=== PATIENT | female | born 1970 | race Caucasian/White ===

== ENCOUNTER 2019-02-07 17:01 | Emergency (ER) | payer MEDICARE, MEDICAID ==
[2019-02-07] MEDS ORDERED: CLONIDINE HCL 0.1 MG TABLET PO ONE (19:29)
[2019-02-07] MEDS ORDERED: ACETAMINOPHEN 325 MG TABLET PO ONE (19:30)
--- NOTE | 2019-02-07 19:32 | ER Document Report ---
ED Medical Screen (RME) - General Chief Complaint: High Blood Pressure Stated Complaint: BLOOD PRESSURE PROBLEM Time Seen by Provider: 02/07/19 19:24 Mode of Arrival: Ambulatory Information source: Patient TRAVEL OUTSIDE OF THE [place] IN LAST 30 DAYS: No - HPI Patient complains to provider of: HTN Notes: 02/07/19 19:31 Patient here with complaints of elevated blood pressure and hypertension. The patient states that she has a history of hypertension. She takes 40 mg of propanolol which has been on for some time. She is also been taking an [id number] herbal supplement to help decrease her blood pressure. She states that her blood pressures been elevated for the last several days. She is been experiencing some dizziness, some blurred vision, some headache, breath. No chest pain. No unilateral numbness, tingling, weakness. Exam No distress, nontoxic-appearing. Lungs clear and equal throughout. Heart sounds normal. Nonfocal neuro exam. Plan CBC, CMP, troponin, EKG, head CT, chest x-ray, clonidine, Tylenol An initial examination was made on the patient as part of the triage process, and it was determined a more comprehensive evaluation was necessary. Initial labs were ordered and patient was transferred to another provider in the ED who assumed care and finished evaluation and plan. - Related Data Allergies/Adverse Reactions: bacitracin [From Neosporin] Allergy (Severe, Verified 02/07/19 17:21) Blisters bacitracin zinc [From Neosporin] Allergy (Severe, Verified 02/07/19 17:21) Blisters gramicidin D [From Neosporin] Allergy (Severe, Verified 02/07/19 17:21) Blisters neomycin sulfate [From Neosporin] Allergy (Severe, Verified 02/07/19 17:21) Blisters nitrous oxide [Nitrous Oxide] Allergy (Severe, Verified 02/07/19 17:21) "Fight or Flight" reaction polymyxin B [From Neosporin] Allergy (Severe, Verified 02/07/19 17:21) Blisters polymyxin B sulfate [From Neosporin] Allergy (Severe, Verified 02/07/19 17:21) Blisters Sulfa (Sulfonamide Antibiotics) Allergy (Severe, Verified 02/07/19 17:21) Jenkins on the inside tizanidine HCl [From Zanaflex] Allergy (Severe, Verified 02/07/19 17:21) Blood in stool Past Medical History - Social History Chew tobacco use (# tins/day): No Frequency of alcohol use: Social Drug Abuse: Marijuana - Past Medical History Cardiac Medical History: Reports: Hx Hypertension Denies: Hx Coronary Artery Disease, Hx Heart Attack Pulmonary Medical History: Reports: Hx Pneumonia - "walking" yrs ago Denies: Hx Asthma, Hx Bronchitis, Hx COPD Neurological Medical History: Denies: Hx Cerebrovascular Accident, Hx Seizures Renal/ Medical History: Denies: Hx Peritoneal Dialysis GI Medical History: Reports: Hx Ulcer - HX OF GASTRIC ULCER. Denies: Hx Hepatitis, Hx Hiatal Hernia Musculoskeltal Medical History: Reports Hx Arthritis - Spurs in back Psychiatric Medical History: Reports: Hx Anxiety Infectious Medical History: Denies: Hx Hepatitis Past Surgical History: Reports: Hx Section, Hx Oral Surgery, Hx Orthopedic Surgery. Denies: Hx Mastectomy, Hx Open Heart Surgery, Hx Pacemaker - Immunizations Hx Diphtheria, Pertussis, Tetanus Vaccination: Yes - 05/20/15 Physical Exam - Vital signs Vitals: Temp Pulse Resp BP Pulse Ox 98.4 F 80 18 183/103 H 98 02/07/19 17:27 02/07/19 17:27 02/07/19 17:27 02/07/19 17:27 02/07/19 17:27 Course - Vital Signs Vital signs: Temp Pulse Resp BP Pulse Ox 98.4 F 80 18 183/103 H 98 02/07/19 17:27 02/07/19 17:27 02/07/19 17:27 02/07/19 17:27 02/07/19 17:27
[2019-02-07 20:44] LABS: ABSOLUTE BASOPHILS # (AUTO) 0.1 10^3/uL (0.0-0.2); ABSOLUTE EOSINOPHILS # (AUTO) 0.2 10^3/uL (0.0-0.6); ABSOLUTE LYMPHOCYTES (AUTO) 5.3 10^3/uL (0.5-4.7); ABSOLUTE MONOCYTES (AUTO) 0.9 10^3/uL (0.1-1.4); ABSOLUTE NEUT (AUTO) 3.8 10^3/uL (1.7-8.2); BASOPHILS % (AUTO) 0.8 % (0-2); EOSINOPHILS % (AUTO) 1.5 % (0-6); HEMATOCRIT 45.5 % (36.0-47.0); HEMOGLOBIN 15.6 g/dL (12.0-15.5); LYMPHOCYTES % (AUTO) 51.7 % (13-45); MEAN CORPUSCULAR HEMOGLOBIN 29.5 pg (27.0-33.4); MEAN CORPUSCULAR HGB CONC 34.3 g/dL (32.0-36.0); MEAN CORPUSCULAR VOLUME 86 fl (80-97); PLATELET COUNT 266 10^3/uL (150-450); RED BLOOD COUNT 5.28 10^6/uL (3.72-5.28); RED CELL DISTRIBUTION WIDTH 13.9 % (11.5-14.0); TOTAL CELLS COUNTED % (AUTO) 100 %; WHITE BLOOD COUNT 10.2 10^3/uL (4.0-10.5)
[2019-02-07 21:11] LABS: ALANINE AMINOTRANSFERASE 26 U/L (9-52); ALKALINE PHOSPHATASE 81 U/L (38-126); ANION GAP 5 (5-19); ASPARTATE AMINO TRANSFERASE 11 U/L (14-36); BILIRUBIN,DIRECT 0.3 mg/dL (0.0-0.4); BILIRUBIN,TOTAL 0.4 mg/dL (0.2-1.3); BLOOD UREA NITROGEN 13 mg/dL (7-20); CALCIUM 9.5 mg/dL (8.4-10.2); CARBON DIOXIDE 27 mmol/L (22-30); CHLORIDE 105 mmol/L (98-107); GLUCOSE 86 mg/dL (75-110); POTASSIUM 4.3 mmol/L (3.6-5.0); SODIUM 136.8 mmol/L (137-145)
--- NOTE | 2019-02-07 21:40 | RADIOLOGY REPORT (SQ) ---
XR CHEST 1 VIEW HISTORY: HTN. COMPARISON: None. FINDINGS: The heart size is normal. No consolidation, pleural effusion, or pneumothorax is seen. There are no acute bony findings. IMPRESSION: No evidence of acute cardiopulmonary disease.
--- NOTE | 2019-02-07 21:42 | RADIOLOGY REPORT (SQ) ---
CT HEAD WITHOUT IV CONTRAST HISTORY: Headache. COMPARISON: None. TECHNIQUE: CT scan of the brain without IV contrast. This exam was performed according to our departmental dose-optimization program, which includes automated exposure control, adjustment of the mA and/or kV according to patient size and/or use of iterative reconstruction technique. FINDINGS: The ventricles, cisterns, and sulci are unremarkable. No focal white matter lesions are seen. No evidence of acute infarction, intracranial hemorrhage, extra-axial fluid collection, or midline shift. No air-fluid levels are seen in the paranasal sinuses to suggest acute sinusitis. No depressed skull fracture. IMPRESSION: No acute intracranial findings.
[2019-02-07] MEDS ORDERED: CLONAZEPAM 1 MG TABLET PO ONE (23:54)
[2019-02-07] MEDS ORDERED: HYDROCHLOROTHIAZIDE 25 MG TABLET PO ONE (23:54)
--- NOTE | 2019-02-08 00:01 | ER Document Report ---
ED General - General Chief Complaint: High Blood Pressure Stated Complaint: BLOOD PRESSURE PROBLEM Time Seen by Provider: 02/07/19 19:24 Primary Care Provider: NATHANIEL PETIT MD [Primary Care Provider] - Follow up as needed Mode of Arrival: Ambulatory Notes: Patient is a pleasant 48-year-old female with a known history of hypertension. She says that she also has a known history of anxiety. She says her blood pressures been running high for several months now. She says is continued to leonila loera. See when her blood pressure gets really high she sometimes gets some headaches and has foggy feeling as well as some numbness in to her bilateral extremities. No chest pain. No difficulty breathing. No nausea vomiting. She used to be on Jahaira but this was discontinued because of a recall medication. She therefore was started on a low-dose of propranolol but is on no other blood pressure medication. She says she does take an herbal supplemental this past to help with blood pressure but her blood pressure continues to run high despite this. She says that she does have anxiety. Says she is always anxious and this probably makes her blood pressure worse. She says she has been on Klonopin for her anxiety which helped significantly however when she moved here a pain management doctor did not want to place her on Klonopin in conjunction with the 7.5 mg hydrocodone she was already on. She says a 7.5 mg, hydrocodone did not make her sleepy and she is been on them for a while. She takes this for chronic back pain. She was placed on Vistaril to help with anxiety but says it does not help. No focal weakness or numbness. No other complaints at this time. TRAVEL OUTSIDE OF THE [place] IN LAST 30 DAYS: No - Related Data Allergies/Adverse Reactions: bacitracin [From Neosporin] Allergy (Severe, Verified 02/07/19 17:21) Blisters bacitracin zinc [From Neosporin] Allergy (Severe, Verified 02/07/19 17:21) Blisters gramicidin D [From Neosporin] Allergy (Severe, Verified 02/07/19 17:21) Blisters neomycin sulfate [From Neosporin] Allergy (Severe, Verified 02/07/19 17:21) Blisters nitrous oxide [Nitrous Oxide] Allergy (Severe, Verified 02/07/19 17:21) "Fight or Flight" reaction polymyxin B [From Neosporin] Allergy (Severe, Verified 02/07/19 17:21) Blisters polymyxin B sulfate [From Neosporin] Allergy (Severe, Verified 02/07/19 17:21) Blisters Sulfa (Sulfonamide Antibiotics) Allergy (Severe, Verified 02/07/19 17:21) Jenkins on the inside tizanidine HCl [From Zanaflex] Allergy (Severe, Verified 02/07/19 17:21) Blood in stool Past Medical History - General Information source: Patient - Social History Smoking Status: Current Every Day Smoker Chew tobacco use (# tins/day): No Frequency of alcohol use: Social Drug Abuse: Marijuana Family History: Reviewed & Not Pertinent Patient has suicidal ideation: No Patient has homicidal ideation: No - Past Medical History Cardiac Medical History: Reports: Hx Hypertension Denies: Hx Coronary Artery Disease, Hx Heart Attack Pulmonary Medical History: Reports: Hx Pneumonia - "walking" yrs ago Denies: Hx Asthma, Hx Bronchitis, Hx COPD Neurological Medical History: Denies: Hx Cerebrovascular Accident, Hx Seizures Renal/ Medical History: Denies: Hx Peritoneal Dialysis GI Medical History: Reports: Hx Ulcer - HX OF GASTRIC ULCER. Denies: Hx Hepatitis, Hx Hiatal Hernia Musculoskeletal Medical History: Reports Hx Arthritis - Spurs in back Psychiatric Medical History: Reports: Hx Anxiety Infectious Medical History: Denies: Hx Hepatitis Past Surgical History: Reports: Hx Section, Hx Oral Surgery, Hx Orthopedic Surgery. Denies: Hx Mastectomy, Hx Open Heart Surgery, Hx Pacemaker - Immunizations Hx Diphtheria, Pertussis, Tetanus Vaccination: Yes - 05/20/15 Review of Systems - Review of Systems Notes: My Normal Review Basic REVIEW OF SYSTEMS: CONSTITUTIONAL : Denies fever, chills, or sweats. Denies recent illness. EENT: Denies eye, ear, throat, or mouth pain or symptoms. Denies nasal or sinus congestion. CARDIOVASCULAR: Denies chest pain. RESPIRATORY: Denies cough, cold, or chest congestion. Denies shortness of breath, difficulty breathing, or wheezing. GASTROINTESTINAL: Denies abdominal pain. Denies nausea, vomiting, or diarrhea. MUSCULOSKELETAL: Denies neck or back pain or joint pain or swelling. SKIN: Denies rash or skin lesions. NEUROLOGICAL: Denies altered mental status or loss of consciousness. Mild headache. Denies weakness or paralysis or loss of use of either side. Denies problems with gait or speech. Denies sensory or motor loss. Psychiatric: Chronic anxiety. ALL OTHER SYSTEMS REVIEWED AND NEGATIVE. Physical Exam - Vital signs Vitals: Temp Pulse Resp BP Pulse Ox 98.4 F 80 18 183/103 H 98 02/07/19 17:27 02/07/19 17:27 02/07/19 17:27 02/07/19 17:27 02/07/19 17:27 - Notes Notes: General Appearance: Well nourished, alert, cooperative, no acute distress, no obvious discomfort. Well-appearing Vitals: reviewed, See vital signs table. Head: no swelling or tenderness to the head Eyes: PERRL, EOMI, Conjuctiva clear Mouth: No decreasd moisture Throat: No tonsillar inflammation, No airway obstruction, No lymphadenopathy Neck: Supple, no neck tenderness Lungs: No wheezing, No rales, No rhonci, No accessory muscle use, good air exchange bilaterally. Heart: Normal rate, Regular rythm, No murmur, no rub Abdomen: Normal BS, soft, No rigidity, No abdominal tenderness, No guarding, no rebound, no abdominal masses, no organomegaly Extremities: strength 5/5 in all extremities, good pulses in all extremities, no swelling or tenderness in the extremities, no edema. Skin: warm, dry, appropriate color, no rash Neuro: speech clear, oriented x 3, normal affect, responds appropriately to questions. Cranial nerves II through XII are intact. Distal sensation intact. Patient moves all extremities without difficulty. Normal gait. Normal Romberg. Course - Re-evaluation Re-evalutation: 02/08/19 05:52 At this time I feel patient safe to be discharged home. I informed her that I do not think her blood pressure really decreased until anxiety is under better control. I will place her on starting lower dose of Klonopin to 0.5 mg twice a day. I will also start hydrochlorothiazide to continue to help bring down her blood pressure. I encouraged her follow-up with your doctor in 1 to 2 weeks for reevaluation to see if she needs further patient adjustment. I encouraged her return to the ER immediately if she has severe headache, vomiting, focal weakness or numbness in her extremities, chest pain, or she has any further concerns. Patient agrees with plan will be discharged home. Dictation of this chart was performed using voice recognition software; therefore, there may be some unintended grammatical errors. - Vital Signs Vital signs: Temp Pulse Resp BP Pulse Ox 98.2 F 80 19 188/98 H 93 02/08/19 00:37 02/07/19 17:27 02/08/19 00:37 02/08/19 00:37 02/08/19 00:37 - Laboratory Result Diagrams: 02/07/19 20:30 02/07/19 20:30 Laboratory results interpreted by me: 02/07/19 02/07/19 20:30 20:30 Hgb 15.6 H Seg Neutrophils % 37.0 L Lymphocytes % 51.7 H Absolute Lymphocytes 5.3 H Sodium 136.8 L AST 11 L Discharge - Discharge Clinical Impression: Anxiety Hypertension Qualifiers: Hypertension type: unspecified Qualified Code(s): I10 - Essential (primary) hypertension Condition: Good Disposition: HOME, SELF-CARE Additional Instructions: HYDROCHLOROTHIAZIDE: Hydrochlorothiazide is a diuretic medication. Diuretics are often called "water pills." The medicine flushes excess salt and water from the body. Diuretics are used for fluid retention (such as heart failure, cirrhosis, or lung disease) and for blood pressure control. Often hydrochlorothiazide is combined with other medicines in the same pill. Most patients prefer to take the medicine in the morning. Hydroc hlorothiazide makes extra urine, which can be a problem if you take the pill at night. Diuretics make you lose potassium. Sometimes a good diet with plenty of fruit is enough to replace it. Sometimes a potassium supplement is necessary. Or, hydrochlorothiazide may be combined with medicines that prevent potassium loss. We usually recommend a blood potassium test in a few weeks. Contact your doctor if you develop extreme fatigue, muscle weakness, lethargy, confusion, or palpitations. FOLLOW-UP CARE: If you have been referred to a physician for follow-up care, call the [facility] office for an appointment as you were instructed or within the next two days. If you experience worsening or a significant change in your symptoms, notify the physician immediately or return to the Emergency Department at any time for re-evaluation. I have written a prescription for hydrochlorothiazide. This is a medication that helps treat blood pressure. Side effects for this medication potentially is having a decreased sodium. Symptoms of this will be that you feel confused or unwell. Please return to the ER immediately if you feel confused or very fatigued. I will also place you back on Klonopin. If the Klonopin is making you very sleepy then you should hold off on taking it and follow-up with your primary care doctor. Please check your blood pressure 1-2 times a day over the next 2 weeks. Please follow-up with your doctor in 1 to 2 weeks for reevaluation to determine whether or not he needs to adjust your medications. Please return to the ER immediately if you have chest pain, difficulty breathing, severe headache, vomiting, fevers, or feel unwell. Please be aware that the Klonopin may make you little bit drowsy and therefore not drive if you are feeling drowsy or confused in any way. Prescriptions: Clonazepam [Klonopin] 0.5 mg PO BID #28 tablet RX: Hydrochlorothiazide [Hydrodiuril 25 mg Tablet] 25 mg PO QAM #14 tablet Referrals: NATHANIEL PETIT MD [Primary Care Provider] - Follow up as needed
[2019-02-08 00:41] VITALS: BP 188/98
--- NOTE | 2019-02-08 08:49 | EKG REPORT ---
SEVERITY:- ABNORMAL ECG - SINUS RHYTHM LEFT ATRIAL ABNORMALITY NONSPECIFIC INFERIOR ST CHANGES : Confirmed by: Elvis Robins MD 08-Feb-2019 08:47:51
== END 2019-02-08 00:41 | disposition home or self-care (01) ==
LOC: ER 17:01
DX: F41.9 Anxiety disorder, unspecified (principal); I10 Essential (primary) hypertension; R51 Headache; F17.200 Nicotine dependence, unspecified, uncomplicated; Z88.2 Allergy status to sulfonamides; Z88.1 Allergy status to other antibiotic agents
CPT/HCPCS: 93005; 99284; 36415; 85025; 80053; 84484; 71045; 70450; 93010; A9270 ×3

== ENCOUNTER 2019-06-08 10:05 | Observation (INO) | payer MEDICARE, MEDICAID ==
[2019-06-06 10:19] LABS: HEMATOCRIT 40.8 % (36.0-47.0); HEMOGLOBIN 13.9 g/dL (12.0-15.5); MEAN CORPUSCULAR HGB CONC 34.1 g/dL (32.0-36.0); MEAN CORPUSCULAR VOLUME 85 fl (80-97); PLATELET COUNT 325 10^3/uL (150-450); RED CELL DISTRIBUTION WIDTH 14.6 % (11.5-14.0); WHITE BLOOD COUNT 9.9 10^3/uL (4.0-10.5)
[2019-06-06 10:31] LABS: APPEARANCE,URINE CLEAR; BILIRUBIN,URINE NEGATIVE (NEGATIVE); COLOR,URINE YELLOW; GLUCOSE, URINE NEGATIVE (NEGATIVE); KETONES,URINE NEGATIVE (NEGATIVE); LEUKOCYTE ESTERASE,URINE NEGATIVE (NEGATIVE); NITRITE,URINE NEGATIVE (NEGATIVE); PROTEIN,URINE NEGATIVE (NEGATIVE); URINE SPECIFIC GRAVITY 1.011; UROBILINOGEN,URINE NEGATIVE mg/dL (<2.0)
--- NOTE | 2019-06-06 17:33 | EKG REPORT ---
SEVERITY:- NORMAL ECG - SINUS RHYTHM : Confirmed by: Josselin Elizabeth MD 06-Jun-2019 17:33:18
[~2019-06-08 10:05] MED LIST: LACTATED RINGERS 1000 ML IV PRN; LIDOCAINE 0.5% INJ-PF (5 MG/ML) 50 ML SDV SUBCUT PRN
[2019-06-08] MEDS ORDERED: MIDAZOLAM 2 MG/2 ML INJ ONE (11:51)
[2019-06-08] MEDS ORDERED: FENTANYL CITRATE INJ/PF 100 MCG/2 ML AMPUL ONE (11:51)
[2019-06-08] MEDS ORDERED: KETAMINE HCL INJ 500 MG/10 ML VIAL ONE (11:51)
[2019-06-08] MEDS ORDERED: PROPOFOL INJ 200 MG/20 ML VIAL IV ONE (11:52)
[2019-06-08] MEDS ORDERED: LIDOCAINE 1% INJ-PF (10 MG/ML) 30 ML SDV ONE (11:57)
[2019-06-08] MEDS ORDERED: MORPHINE SULFATE 10 MG/ML INJ IV PRN (12:46)
[2019-06-08] MEDS ORDERED: PROMETHAZINE HCL INJ 25 MG/1 ML VIAL IV PRN ×3 (12:46→13:30)
[2019-06-08] MEDS ORDERED: MEPERIDINE HCL/PF INJ 25 MG/1 ML DISP.SYRIN IV PRN (12:46)
[2019-06-08] MEDS ORDERED: DIPHENHYDRAMINE HCL 50 MG/ML VIAL IV PRN (12:46)
[2019-06-08] MEDS ORDERED: FENTANYL CITRATE INJ/PF 100 MCG/2 ML AMPUL IV PRN ×3 (12:46)
--- NOTE | 2019-06-08 13:05 | Operative Report ---
Operative Report DATE OF SURGERY: 06/08/19 PREOPERATIVE DIAGNOSIS: 1. Menorrhagia. 2. Negative endometrial biopsy POSTOPERATIVE DIAGNOSIS: Same plus possible right vaginal lesion OPERATION: 1. Dilatation and curettage. 2. Endometrial ablation via NovaSure. 3. Right posterior cul-de-sac biopsy SURGEON: YAEL WYATT ANESTHESIA: Moderate Sedation TISSUE REMOVED OR ALTERED: 1. Endometrial curettings. 2. Right vaginal biopsy COMPLICATIONS: None ESTIMATED BLOOD LOSS: 25 mL INTRAOPERATIVE FINDINGS: Uterus sounded 9 cm; cavity with 3.5 cm; power= 89 W; ablation cycle lasted 1 minute and 50 seconds; right posterior cul-de-sac adhesion versus lesion PROCEDURE: The patient was taken to the operating room where light sedation was pediatric dietician without difficulty. The patient was then prepared and draped in the normal sterile fashion in dorsal lithotomy position. The patient's bladder was straight catheterized of approximately 200 mL of clear urine. Next, a bivalve speculum was placed in the patient's vagina and the anterior lip of the cervix was grasped with a single-tooth tenaculum. It was noted that in the right posterior cul-de-sac, beneath the cervix, there was a bulge, which was adhesed to the vagina. I biopsied the area. Next, the uterus was sounded, which was 9 cm. The endocervical canal was 4.5 cm. The patient's cervix was serially dilated in order to accommodate the NovaSure applicator. A sharp curettage was then performed and the curettings was passed off to the OR tech. Next, the NovaSure applicator was introduced into the endometrial cavity with a setting of 4.5. The cavity width was then assessed, which measured 3.6 cm. The test cycle was then run, which was successful. The machine was then activated for the burn cycle which lasted 1 minute and 50 seconds, using a power of 89 W. The NovaSure applicator was then removed from the patient's uterine cavity. The single-tooth tenaculum was then removed, in which there was some bleeding on the right. Monsel's was placed for hemostasis. All instruments were then removed from the patient's vagina. The patient tolerated the procedures well. Sponge, lap and instrument counts were correct x2. The patient was taken to the recovery room in stable condition.
[2019-06-08] MEDS: MEPERIDINE HCL/PF INJ 25 MG/1 ML DISP.SYRIN ONE ×2 (13:06→13:11)
[2019-06-08] MEDS ORDERED: ACETAMINOPHEN 1,000 MG/100 ML RTUPB IV ONE (13:17)
[2019-06-08] MEDS: FENTANYL CITRATE INJ/PF 100 MCG/2 ML AMPUL ONE ×2 (13:18→13:28)
[2019-06-08] MEDS: LABETALOL HCL INJ 20 MG/4 ML DISP.SYRIN IV ONE ×2 (13:23→14:16)
[2019-06-08] MEDS ORDERED: OXYCODONE-ACETAMINOPHEN 5-325 MG TABLET PO PRN (13:30)
[2019-06-08] MEDS ORDERED: ONDANSETRON HCL INJ/PF 4 MG/2 ML SDV IV PRN ×2 (13:30→16:54)
[2019-06-08] MEDS ORDERED: OXYCODONE-ACETAMINOPHEN 5-325 MG TABLET ONE (14:40)
[2019-06-08] MEDS ORDERED: ONDANSETRON HCL INJ/PF 4 MG/2 ML SDV ONE (14:47)
[2019-06-08] MEDS ORDERED: GLYCOPYRROLATE 1 MG/5 ML VIAL ONE (14:47)
[2019-06-08] MEDS ORDERED: KETOROLAC TROMETHAMINE 60 MG/2 ML SDV ONE (14:47)
[2019-06-08] MEDS ORDERED: PROMETHAZINE HCL INJ 25 MG/1 ML VIAL ONE ×2 (14:59→15:28)
[2019-06-08] MEDS ORDERED: HYDRALAZINE HCL INJ/PF 20 MG/1 ML SDV ONE (16:10)
[2019-06-08] MEDS: HYDRALAZINE HCL INJ/PF 20 MG/1 ML SDV IV ONE (16:20)
[2019-06-08] MEDS ORDERED: ONDANSETRON 4 MG TAB.RAPDIS PO PRN (16:54)
[2019-06-08] MEDS ORDERED: HYDRALAZINE HCL INJ/PF 20 MG/1 ML SDV IV PRN (17:07)
[2019-06-08] MEDS: CLONIDINE HCL 0.2 MG TABLET PO ONE (17:11)
--- NOTE | 2019-06-08 17:49 | Progress Note Acknowledgement ---
Progress Note Acknowledgement Progess Note Acknowledgement: I, the undersigned member of the medical staff with appropriate privileges and with supervisory authority over [Bright Trejo], a dependent practice allied health professional, acknowledge that I have reviewed the progress notes entered on this patient, and in my professional judgment believe that the assessment made and/or any care evidenced was appropriate
--- NOTE | 2019-06-08 17:54 | PDOC H&P ---
History of Present Illness Admission Date/PCP: EDER TRUONG Patient complains of: Hypertension History of Present Illness: SALLY TURK is a 48 year old female who underwent a endometrial ablation today for menorrhagia. After the procedure patient was found to have hypertension 210/110 that was nonresponsive to hydralazine and labetalol. I was asked see patient in consultation to get her blood pressure better under control before discharge home. She had several doses of hydralazine and labetalol before I arrived she stated no true aggravating factors. Past Medical History Cardiac Medical History: Reports: Coronary Artery Disease - HIGH CHOL, Hypertension Denies: Myocardial Infarction Pulmonary Medical History: Reports: Pneumonia - "walking" yrs ago Denies: Asthma, Bronchitis, Chronic Obstructive Pulmonary Disease (COPD) Neurological Medical History: Denies: Seizures GI Medical History: Denies: Hepatitis, Hiatal Hernia Musculoskeltal Medical History: Reports: Arthritis - Spurs in back Hematology: Reports: Anemia - with Denies: Sickle Cell Disease Past Surgical History Past Surgical History: Reports: Section, Orthopedic Surgery Denies: Amputation, Mastectomy, Pacemaker Social History Information Source: Patient Lives with: Family Smoking Status: Current Every Day Smoker Cigarettes Packs Per Day: 0.5 Frequency of Alcohol Use: None Hx Recreational Drug Use: Yes Drugs: Marijuana Hx Prescription Drug Abuse: No - Advance Directive Resuscitation Status: Full Code Family History Family History: DM, Hyperlipidemia, Hypertension Parental Family History Reviewed: Yes Children Family History Reviewed: Yes Sibling(s) Family History Reviewed.: Yes Medication/Allergy Home Medications: Hydrocodone/Acetaminophen [Hydrocodone-Acetamin 7.5-325] 1 each PO Q6 PRN 10/13/15 Lidocaine HCl [Xylocaine] 35 gm TP PRN PRN 10/13/15 Hydrochlorothiazide [Hydrodiuril 25 mg Tablet] 25 mg PO QAM #14 tablet 02/07/19 Clomiphene Citrate [Serophene 50 mg Tablet] 50 mg PO DAILY 06/08/19 Escitalopram Oxalate [Lexapro] 20 mg PO DAILY 06/08/19 Hydroxyzine HCl [Atarax 50 mg Tablet] 50 mg PO Q6 PRN 06/08/19 Loratadine [Claritin] 10 mg PO PRN PRN 06/08/19 Losartan/Hydrochlorothiazide [Losartan-Hctz 100-25 mg Tab] 1 each PO DAILY 06/08/19 Propranolol HCl [Inderal 40 Mg Tablet] 40 mg PO BID 06/08/19 Allergies/Adverse Reactions: bacitracin [From Neosporin] Allergy (Severe, Verified 06/06/19 10:59) Blisters neomycin sulfate [From Neosporin] Allergy (Severe, Verified 06/06/19 10:59) Blisters nitrous oxide [Nitrous Oxide] Allergy (Severe, Verified 06/06/19 10:59) "Fight or Flight" reaction polymyxin B [From Neosporin] Allergy (Severe, Verified 06/06/19 10:59) Blisters Sulfa (Sulfonamide Antibiotics) Allergy (Severe, Verified 06/06/19 10:59) Jenkins on the inside tizanidine HCl [From Zanaflex] Allergy (Severe, Verified 06/06/19 10:59) Blood in stool Review of Systems Constitutional: ABSENT: chills, fever(s), headache(s), weight gain, weight loss Eyes: ABSENT: visual disturbances Ears: ABSENT: hearing changes Cardiovascular: ABSENT: chest pain, dyspnea on exertion, edema, orthropnea, palpitations Respiratory: ABSENT: cough, hemoptysis Gastrointestinal: ABSENT: abdominal pain, constipation, diarrhea, hematemesis, hematochezia, nausea, vomiting Genitourinary: ABSENT: dysuria, hematuria Musculoskeletal: ABSENT: joint swelling Integumentary: ABSENT: rash, wounds Neurological: ABSENT: abnormal gait, abnormal speech, confusion, dizziness, focal weakness, syncope Psychiatric: ABSENT: anxiety, depression, homidical ideation, suicidal ideation Endocrine: ABSENT: cold intolerance, heat intolerance, polydipsia, polyuria Hematologic/Lymphatic: ABSENT: easy bleeding, easy bruising Physical Exam Vital Signs: Temp Pulse Resp BP Pulse Ox 97.6 F 88 18 171/89 H 97 06/08/19 17:30 06/08/19 17:30 06/08/19 17:30 06/08/19 17:30 06/08/19 17:30 Intake & Output 06/07/19 06/08/19 06/09/19 06:59 06:59 06:59 Intake Total 900 Output Total 404 Balance 496 Weight 108.86 kg 108.86 kg General appearance: PRESENT: no acute distress, well-developed, well-nourished Head exam: PRESENT: atraumatic, normocephalic Eye exam: PRESENT: conjunctiva pink, EOMI, PERRLA. ABSENT: scleral icterus Ear exam: PRESENT: normal external ear exam Mouth exam: PRESENT: moist, tongue midline Neck exam: ABSENT: carotid bruit, JVD, lymphadenopathy, thyromegaly Respiratory exam: PRESENT: clear to auscultation sweta. ABSENT: rales, rhonchi, wheezes Cardiovascular exam: PRESENT: RRR. ABSENT: diastolic murmur, rubs, systolic murmur Pulses: PRESENT: normal dorsalis pedis pul Vascular exam: PRESENT: normal capillary refill GI/Abdominal exam: PRESENT: normal bowel sounds, soft. ABSENT: distended, guarding, mass, organolmegaly, rebound, tenderness Rectal exam: PRESENT: deferred Extremities exam: PRESENT: full ROM. ABSENT: calf tenderness, clubbing, pedal edema Neurological exam: PRESENT: alert, awake, oriented to person, oriented to place, oriented to time, oriented to situation, CN II-XII grossly intact. ABSENT: motor sensory deficit Psychiatric exam: PRESENT: appropriate affect, normal mood. ABSENT: homicidal ideation, suicidal ideation Skin exam: PRESENT: dry, intact, warm. ABSENT: cyanosis, rash Results Laboratory Results: 06/06/19 09:40 06/08/19 11:23 06/08/19 06/08/19 11:23 11:23 Potassium 4.1 Serum HCG, Qual NEGATIVE Assessment and Plan - Diagnosis (1) Hypertensive urgency Is this a current diagnosis for this admission?: Yes Plan: June 08, 2019-upon my arrival to the PACU patient's blood pressure 173/90. I gave her 0.2 mg of clonidine p.o. I will continue hydralazine 10 mg IV every 4 hours as needed for systolic blood pressure above 160. Will reassess in the a.m. (2) Menorrhagia Is this a current diagnosis for this admission?: Yes Plan: June 08, 2019-patient underwent endometrial ablation today continue to follow. (3) S/P endometrial ablation Is this a current diagnosis for this admission?: Yes Plan: June 08, 2019-patient underwent endometrial ablation today we will monitor for signs of bleeding or any other comp occasion. (4) Tobacco abuse Is this a current diagnosis for this admission?: Yes Plan: June 08, 2019-continue to encourage smoking cessation. - Time Time Spent with patient: 35 or more minutes
[2019-06-08] MEDS: PROPRANOLOL HCL 40 MG TABLET PO SCH (21:07)
[2019-06-08] MEDS: OXYCODONE-ACETAMINOPHEN 5-325 MG TABLET PO PRN (21:08)
[2019-06-09] MEDS: CLONIDINE HCL 0.2 MG TABLET PO ONE (00:14)
[2019-06-09] MEDS: HYDRALAZINE HCL INJ/PF 20 MG/1 ML SDV IV ONE (00:14)
--- NOTE | 2019-06-09 05:33 | PDOC PROGRESS REPORT ---
Subjective Progress Note for:: 06/09/19 Subjective:: Uncontrolled hypertension Reason For Visit: N92.0 EXCESSIVE AND FREQUENT MENSTRUATION , Z79.01 Physical Exam - Physical Exam Vital Signs: Temp Pulse Resp BP Pulse Ox 98.8 F 71 20 115/65 95 06/09/19 04:12 06/09/19 04:12 06/09/19 04:12 06/09/19 04:12 06/09/19 04:12 Intake & Output 06/07/19 06/08/19 06/09/19 06:59 06:59 06:59 Intake Total 2170 Output Total 404 Balance 1766 Weight 108.86 kg 110 kg General appearance: PRESENT: no acute distress Respiratory exam: PRESENT: clear to auscultation sweta Cardiovascular exam: PRESENT: RRR GI/Abdominal exam: PRESENT: normal bowel sounds, soft Extremities exam: ABSENT: calf tenderness, clubbing, full ROM, joint swelling, pedal edema, tenderness, +1 edema, +2 edema, other Result Laboratory Results: 06/06/19 09:40 06/08/19 11:23 06/08/19 06/08/19 11:23 11:23 Potassium 4.1 Serum HCG, Qual NEGATIVE Assessment & Plan - Diagnosis (1) Hypertensive urgency Is this a current diagnosis for this admission?: Yes (2) Menorrhagia Is this a current diagnosis for this admission?: Yes (3) S/P endometrial ablation Is this a current diagnosis for this admission?: Yes (4) Tobacco abuse Is this a current diagnosis for this admission?: Yes - Time Time Spent with patient: Less than 15 minutes - Plan Summary Plan Summary: Pt will be OBV overnight secondary to uncontrolled hypertension after her endom etrial ablation. She is not painful. I was called by Dr. Shankar, who stated that he had given her Labetalol and Hydralazine and her BP was still 200/100. I consulted the hospitalist to manage her BP.
[2019-06-09 07:40] LABS: ANION GAP 8 (5-19); BLOOD UREA NITROGEN 11 mg/dL (7-20); CALCIUM 8.8 mg/dL (8.4-10.2); CARBON DIOXIDE 28 mmol/L (22-30); CHLORIDE 101 mmol/L (98-107); GLUCOSE 92 mg/dL (75-110); POTASSIUM 3.7 mmol/L (3.6-5.0)
[2019-06-09] MEDS ORDERED: HYDROCHLOROTHIAZIDE 25 MG TABLET PO SCH (08:00)
--- NOTE | 2019-06-09 08:06 | PDOC DISCHARGE SUMMARY ---
General - Admit/Disc Date/PCP Admission Date/Primary Care Provider: EDER TRUONG Discharge Date: 06/09/19 - Discharge Diagnosis (1) Hypertensive urgency Is this a current diagnosis for this admission?: Yes (2) Menorrhagia Is this a current diagnosis for this admission?: Yes (3) S/P endometrial ablation Is this a current diagnosis for this admission?: Yes (4) Tobacco abuse Is this a current diagnosis for this admission?: Yes - Additional Information Resuscitation Status: Full Code Discharge Diet: As Tolerated Discharge Activity: Activity As Tolerated Home Medications: Hydrochlorothiazide [Hydrodiuril 25 mg Tablet] 25 mg PO QAM #14 tablet 02/07/19 Escitalopram Oxalate [Lexapro] 20 mg PO DAILY 06/08/19 Hydrocodone/Acetaminophen [[place] 10-325 mg Tablet] 1 tab PO Q6HP PRN 06/08/19 Hydroxyzine HCl [Atarax 50 mg Tablet] 50 mg PO Q6HP PRN 06/08/19 Loratadine [Claritin] 10 mg PO DAILYP PRN 06/08/19 Losartan Potassium [Cozaar 100 mg Tablet] 100 mg PO DAILY 06/08/19 Norethindrone Acetate [Aygestin 5 mg Tablet] 10 mg PO DAILY 06/08/19 Orphenadrine Citrate 100 mg PO BIDP PRN 06/08/19 Propranolol HCl [Inderal 40 mg Tablet] 40 mg PO Q12 06/08/19 Quetiapine Fumarate [Seroquel 100 mg Tablet] 100 mg PO DAILY 06/08/19 History of Present Illness Patient complains of: None this a.m. History of Present Illness: SALLY TURK is a 48 year old female who underwent a endometrial ablation today for menorrhagia. After the procedure patient was found to have hypertension 210/110 that was nonresponsive to hydralazine and labetalol. I was asked see patient in consultation to get her blood pressure better under control before discharge home. She had several doses of hydralazine and labetalol before I arrived she stated no true aggravating factors. Hospital Course Hospital Course: Patient was admitted after endometrial ablation with hypertensive urgency. Once I saw patient in the PACU her blood pressure was already trending down. I gave patient 0.2 of clonidine and this morning her blood pressure is 115 systolic. This is more along the norm for this patient. Patient will be discharged home at this time she will follow-up with her primary care practitioner within [address] osman as per Dr. osman's instructions. Patient is in agreement with plan of care Physical Exam Vital Signs: Temp Pulse Resp BP Pulse Ox 98.8 F 71 20 115/65 95 06/09/19 04:12 06/09/19 04:12 06/09/19 04:12 06/09/19 04:12 06/09/19 04:12 Intake & Output 06/08/19 06/09/19 06/10/19 06:59 06:59 06:59 Intake Total 2370 Output Total 404 Balance 1966 Weight 110 kg General appearance: PRESENT: no acute distress, well-developed, well-nourished Head exam: PRESENT: atraumatic, normocephalic Eye exam: PRESENT: conjunctiva pink, EOMI, PERRLA. ABSENT: scleral icterus Ear exam: PRESENT: normal external ear exam Mouth exam: PRESENT: moist, tongue midline Neck exam: ABSENT: carotid bruit, JVD, lymphadenopathy, thyromegaly Respiratory exam: PRESENT: clear to auscultation sweta. ABSENT: rales, rhonchi, wheezes Cardiovascular exam: PRESENT: RRR. ABSENT: diastolic murmur, rubs, systolic murmur Pulses: PRESENT: normal dorsalis pedis pul Vascular exam: PRESENT: normal capillary refill GI/Abdominal exam: PRESENT: normal bowel sounds, soft. ABSENT: distended, guarding, mass, organolmegaly, rebound, tenderness Rectal exam: PRESENT: deferred Extremities exam: PRESENT: full ROM. ABSENT: calf tenderness, clubbing, pedal edema Neurological exam: PRESENT: alert, awake, oriented to person, oriented to place, oriented to time, oriented to situation, CN II-XII grossly intact. ABSENT: motor sensory deficit Psychiatric exam: PRESENT: appropriate affect, normal mood. ABSENT: homicidal ideation, suicidal ideation Skin exam: PRESENT: dry, intact, warm. ABSENT: cyanosis, rash Results Laboratory Results: 06/06/19 09:40 06/09/19 06:06 06/08/19 06/08/19 06/09/19 11:23 11:23 06:06 Sodium 136.9 L Potassium 4.1 3.7 Chloride 101 Carbon Dioxide 28 Anion Gap 8 BUN 11 Creatinine 1.08 Est GFR ( Amer) > 60 Glucose 92 Calcium 8.8 Serum HCG, Qual NEGATIVE Qualifiers - * PATIENT BEING DISCHARGED WITH ANY OF THE FOLLOWING DIAGNOSIS: No Acute Heart Failure - Is this a Heart Failure Patient?: No Plan Time Spent: Greater than 30 Minutes
[2019-06-09] MEDS: OXYCODONE-ACETAMINOPHEN 5-325 MG TABLET PO PRN (08:26)
[2019-06-09] MEDS: PROPRANOLOL HCL 40 MG TABLET PO SCH (09:13)
--- NOTE | 2019-06-09 09:16 | PDOC PROGRESS REPORT ---
Subjective Progress Note for:: 06/09/19 Subjective:: Uncontrolled hypertension Reason For Visit: N92.0 EXCESSIVE AND FREQUENT MENSTRUATION , Z79.01 Physical Exam - Physical Exam Vital Signs: Temp Pulse Resp BP Pulse Ox 98.1 F 80 16 155/82 H 99 06/09/19 08:23 06/09/19 08:23 06/09/19 08:23 06/09/19 08:23 06/09/19 08:23 Intake & Output 06/08/19 06/09/19 06/10/19 06:59 06:59 06:59 Intake Total 2370 Output Total 404 Balance 1966 Weight 110 kg General appearance: PRESENT: no acute distress Respiratory exam: PRESENT: clear to auscultation sweta Cardiovascular exam: PRESENT: RRR GI/Abdominal exam: PRESENT: normal bowel sounds, soft - Gynecological Exam Vagina: normal - no bleeding Result Laboratory Results: 06/06/19 09:40 06/09/19 06:06 06/08/19 06/08/19 06/09/19 11:23 11:23 06:06 Sodium 136.9 L Potassium 4.1 3.7 Chloride 101 Carbon Dioxide 28 Anion Gap 8 BUN 11 Creatinine 1.08 Est GFR ( Amer) > 60 Glucose 92 Calcium 8.8 Serum HCG, Qual NEGATIVE Assessment & Plan - Diagnosis (1) Hypertensive urgency Is this a current diagnosis for this admission?: Yes (2) Menorrhagia Is this a current diagnosis for this admission?: Yes (3) S/P endometrial ablation Is this a current diagnosis for this admission?: Yes (4) Tobacco abuse Is this a current diagnosis for this admission?: Yes - Time Time Spent with patient: Less than 15 minutes Medications reviewed and adjusted accordingly: Yes Anticipated discharge: Home - Plan Summary Plan Summary: 1. Discharge home per Dr. Trejo 2. F/U in the office for post op exam as scheduled
[2019-06-09 09:50] VITALS: BP 155/101
[2019-06-09] MEDS ORDERED: (PENDING PHARMACY ID) (Losartan/Hydrochlorothiazide [Losartan-Hctz 100-25 Mg Tab] 1 EACH) PO SCH (10:00)
[2019-06-09] MEDS ORDERED: LOSARTAN POTASSIUM 50 MG TABLET PO SCH (10:00)
== END 2019-06-09 10:03 | disposition home or self-care (01) ==
LOC: OROUT 10:05 → INOR 10:06 → 3N 18:52 → OROUT 06-09 10:03
PROVIDERS: ADMIT Obstetrics & Gynecology; ATTEND Obstetrics & Gynecology
PROC: 0UB Female Reproductive System, Excision (ICD-10-PCS; 2019-06-08)
PROC: 0UDB7ZX Extraction of Endometrium, Via Natural or Artificial Opening, Diagnostic (ICD-10-PCS; 2019-06-08)
PROC: 0U5B7ZZ Destruction of Endometrium, Via Natural or Artificial Opening (ICD-10-PCS; principal; 2019-06-08 12:00)
DX: I16.0 Hypertensive urgency (principal); N92.0 Excessive and frequent menstruation with regular cycle; D20.1 Benign neoplasm of soft tissue of peritoneum; F32.9 Major depressive disorder, single episode, unspecified; F41.9 Anxiety disorder, unspecified; M79.7 Fibromyalgia; F17.210 Nicotine dependence, cigarettes, uncomplicated; Z79.899 Other long term (current) drug therapy; I25.10 Atherosclerotic heart disease of native coronary artery without angina pectoris; Z82.49 Family history of ischemic heart disease and other diseases of the circulatory system; Z79.891 Long term (current) use of opiate analgesic; Z98.51 Tubal ligation status
CPT/HCPCS: 93005; 86900; 86901; 36415 ×2; 86850; 84132; 84703; 85027; 80048; 81001; 88342 ×2; 88341 ×2; 88305 ×2; 88313 ×2; 93010; 00952; 58999; 58120; G0378 ×4; G0379; J2250; A9270 ×6; J1885; J3010; J0360; J3490 ×3; J2175; J2550; J2405; J2704; J0131; 952

== ENCOUNTER → 2019-08-10 | Outpatient (CLI) | payer MEDICARE, MEDICAID ==
--- NOTE | 2019-08-10 11:50 | RADIOLOGY REPORT (SQ) ---
EXAM DESCRIPTION: MRI PELVIS COMBO COMPLETED DATE/TIME: 08/10/2019 10:51 am REASON FOR STUDY: MALIGNANT NEOPLASM OF CERVIX UTERI, UNSPECIFIED C53.9 MALIGNANT NEOPLASM OF CERVI X UTERI, UNSPECIFIED COMPARISON: None. TECHNIQUE: Multiplanar multisequence imaging performed without and with contrast including axial, sa gittal and coronal T2, axial T, axial gradient fat sat T1, axial, sagittal and coronal fat sat T2 pos t contrast. CONTRAST TYPE AND DOSE: 20 all mL Dotarem. RENAL FUNCTION: GFR > 60. LIMITATIONS: None. FINDINGS: Just to the right of the external cervical os, a cervical tumor is present worrisome for m alignancy measuring 3 cm craniocaudad x 2.3 cm AP x 2.4 cm transverse. This extends into the right v aginal fornix, best shown on axial T2 image 18, and sagittal images 8-11. There is convex rightward lateral bulge of tumor worrisome for parametrial involvement, best shown on coronal T2 image 7, and c oronal T1 postcontrast images 67-112. There are intact fat between the tumor and rectum. No bladder involvement. No pelvic adenopathy. N o pelvic sidewall involvement. BLADDER AND URETHRA: No focal bladder wall thickening or nodularity. Smooth mucosa. The urethra has smooth contour with no focal asymmetry. No abnormal enhancement. No focal lesions. PELVIC SOFT TISSUES: No adenopathy. No free fluid. UTERUS: Uterus measures 9 x 5 x 7.5 cm in size. Multiple less than 3 cm uterine fibroids. Endometria l stripe 1 cm in thickness, grossly normal junctional zone. 7 mm focus of fluid in the endometrium sa gittal image 13, axial image 12 of uncertain clinical significance. RIGHT OVARY: Normal size, 3.8 x 3 x 1.3 cm in size with several small subcentimeter follicles. No ma sses LEFT OVARY: Normal size, 3.2 x 2.5 x 2.9 cm in size with several small subcentimeter follicles. No m asses. FREE FLUID: None. PELVIC SKELETAL STRUCTURES: No abnormal marrow signal. Hip joints, SI joints unremarkable. EXTRA PELVIS SOFT TISSUES: No masses. OTHER: No other significant finding. IMPRESSION: 3 x 2.3 x 2.4 cm mass along the rightward cervix extending into the right vaginal fornix . No bulky pelvic adenopathy. Findings worrisome for parametrial tumor invasion COMMENT: [employer];2000:20:[id number] TECHNICAL DOCUMENTATION: JOB ID: [id number] [employer]- All Rights Reserved Reading location - IP/workstation name: [email or web address]
== END ==
LOC: RAD 09:20
PROVIDERS: ATTEND Radiology Radiation Oncology
DX: C53.9 Malignant neoplasm of cervix uteri, unspecified (principal); D25.9 Leiomyoma of uterus, unspecified
CPT/HCPCS: 82565; 72197; A9576

== ENCOUNTER 2019-09-23 17:10 | Inpatient (IN) | payer MEDICARE, MEDICAID ==
[2019-09-23 17:33] LABS: ABSOLUTE LYMPHOCYTES (AUTO) 0.9 10^3/uL (0.5-4.7); ABSOLUTE MONOCYTES (AUTO) 0.5 10^3/uL (0.1-1.4); ABSOLUTE NEUT (AUTO) 3.5 10^3/uL (1.7-8.2); BASOPHILS % (AUTO) 0.3 % (0-2); EOSINOPHILS % (AUTO) 0.8 % (0-6); HEMATOCRIT 32.4 % (36.0-47.0); HEMOGLOBIN 11.4 g/dL (12.0-15.5); LYMPHOCYTES % (AUTO) 17.5 % (13-45); MEAN CORPUSCULAR VOLUME 86 fl (80-97); MONOCYTES % (AUTO) 10.6 % (3-13); PLATELET COUNT 157 10^3/uL (150-450); RED BLOOD COUNT 3.78 10^6/uL (3.72-5.28); RED CELL DISTRIBUTION WIDTH 13.8 % (11.5-14.0); SEGMENTED NEUTROPHILS % (AUTO) 70.8 % (42-78); TOTAL CELLS COUNTED % (AUTO) 100 %
--- NOTE | 2019-09-23 17:41 | ER Document Report ---
ED General - General Chief Complaint: Breathing Difficulty Stated Complaint: DIFFICULTY BREATHING Time Seen by Provider: 09/23/19 17:26 Primary Care Provider: HO DE OLIVEIRA MD [TEO BLANK] - Follow up as needed TRAVEL OUTSIDE OF THE [place] IN LAST 30 DAYS: No - HPI Notes: Patient is a 49-year-old female with a history of fibromyalgia, hypertension, cervical cancer that is currently being treated with chemo and radiation who presents complaining of feeling short of breath intermittently for the past couple days which has resolved upon arrival. Patient states that her last chemo treatment was on Tuesday and radiation was Tuesday. Patient states that she has been able to eat and drink. She is urinating normally and having normal bowel movements. Patient states that she does have associated cramping to her hands bilaterally as well as to her back. Patient was noted to be hyperventilating by EMS upon their arrival. No other recent illness. Denies any headache, fever, neck pain, URI, sore throat, chest pain, palpitations, syncope, cough, wheeze, abdominal pain, nausea/vomiting, urinary retention, dysuria, hematuria, loss of control of bowel or bladder, numbness, saddle anesthesia, muscle paralysis/weakness, or rash. - Related Data Allergies/Adverse Reactions: bacitracin [From Neosporin] Allergy (Severe, Verified 06/06/19 10:59) Blisters neomycin sulfate [From Neosporin] Allergy (Severe, Verified 06/06/19 10:59) Blisters nitrous oxide [Nitrous Oxide] Allergy (Severe, Verified 06/06/19 10:59) "Fight or Flight" reaction polymyxin B [From Neosporin] Allergy (Severe, Verified 06/06/19 10:59) Blisters Sulfa (Sulfonamide Antibiotics) Allergy (Severe, Verified 06/06/19 10:59) Jenkins on the inside tizanidine HCl [From Zanaflex] Allergy (Severe, Verified 06/06/19 10:59) Blood in stool Home Medications: Escitalopram, Zofran, Potassium Chloride, Propanolol, Cetirizine, Losartan/HCTZ, Lorazepam, Percocet, Promethazine, Hydroxyzine, Cisplatin (IV weekly) Past Medical History - Social History Smoking Status: Current Every Day Smoker Frequency of alcohol use: None Drug Abuse: Marijuana Family History: DM, Hyperlipidemia, Hypertension Patient has suicidal ideation: No Patient has homicidal ideation: No - Past Medical History Cardiac Medical History: Reports: Hx Coronary Artery Disease - HIGH CHOL, Hx Hypertension Denies: Hx Heart Attack Pulmonary Medical History: Reports: Hx Pneumonia - "walking" yrs ago Denies: Hx Asthma, Hx Bronchitis, Hx COPD Neurological Medical History: Denies: Hx Cerebrovascular Accident, Hx Seizures Renal/ Medical History: Denies: Hx Peritoneal Dialysis GI Medical History: Reports: Hx Ulcer - HX OF GASTRIC ULCER. Denies: Hx Hepatitis, Hx Hiatal Hernia Musculoskeletal Medical History: Reports Hx Arthritis - Spurs in back Psychiatric Medical History: Reports: Hx Anxiety, Hx Depression - on medication Infectious Medical History: Denies: Hx Hepatitis Past Surgical History: Reports: Hx Section, Hx Oral Surgery, Hx Orthopedic Surgery. Denies: Hx Mastectomy, Hx Open Heart Surgery, Hx Pacemaker - Immunizations Hx Diphtheria, Pertussis, Tetanus Vaccination: Yes - 05/20/15 Review of Systems - Review of Systems -: Yes All other systems reviewed and negative Physical Exam - Vital signs Vitals: Resp Pulse Ox 12 100 09/23/19 17:27 09/23/19 17:27 - Notes Notes: PHYSICAL EXAMINATION: GENERAL: Well-appearing, well-nourished and in no acute distress. A&Ox4. Answers questions appropriately. HEAD: Atraumatic, normocephalic. EYES: Pupils equal round and reactive to light, extraocular movements intact, sclera anicteric, conjunctiva are normal. ENT: Nares patent and without discharge. oropharynx clear without exudates. No tonsilar hypertrophy or erythema. Moist mucous membranes. NECK: Normal range of motion, supple without lymphadenopathy LUNGS: Breath sounds clear to auscultation bilaterally and equal. No wheezes rales or rhonchi. HEART: Regular rate and rhythm without murmurs, rubs, gallops. ABDOMEN: Soft, nontender, nondistended abdomen. No guarding, no rebound. Normal bowel sounds present. No CVA tenderness bilaterally. Musculoskeletal: FROM to passive/active. Strength 5+/5. Dona neg. No asymmetry to LE's. Extremities: No cyanosis, clubbing, or edema b/l. Peripheral pulses 2+. Capillary refill less than 3 seconds. NEUROLOGICAL: Normal speech, normal gait. PSYCH: Normal mood, normal affect. SKIN: Warm, Dry, normal turgor, no rashes or lesions noted. Course - Re-evaluation Re-evalutation: 09/23/19 17:40 Pt is non-toxic and appears well/calm. No respiratory distress. Vitals are acceptable. Pulse 87, RR 22, 100% RA, and 125/86 BP, afebrile 98.7. She does not have any CP, SOB, or dyspnea at this time. 09/23/19 18:33 Patient is an afebrile 49-year-old female who presents with hypocalcemia and hypokalemia in the setting of symptoms with muscle cramping. We will start with potassium as well as calcium gluconate. Magnesium order has been added. Remaining cardiac work-up is still pending, but patient does not have any cardio pulmonary symptoms currently. I did call for admission to the hospital, Dr. Valle accepted to tele. Pt in agreement with plan. - Vital Signs Vital signs: Temp Pulse Resp BP Pulse Ox 98.7 F 91 18 125/86 H 100 09/23/19 17:28 09/23/19 17:28 09/23/19 17:28 09/23/19 17:28 09/23/19 17:28 - Laboratory Result Diagrams: 09/23/19 17:20 09/23/19 17:20 Laboratory results interpreted by me: 09/23/19 09/23/19 09/23/19 17:20 17:20 17:20 Hgb 11.4 L Hct 32.4 L Sodium 134.4 L Potassium 2.8 L* Chloride 91 L Carbon Dioxide 34 H Creatinine 1.49 H Est GFR ( Amer) 45 L Est GFR (MDRD) Non-Af 38 L Calcium 6.2 L* AST 12 L NT-Pro-B Natriuret Pep 159 H Urine Urobilinogen Ur Leukocyte Esterase 09/23/19 17:56 Hgb Hct Sodium Potassium Chloride Carbon Dioxide Creatinine Est GFR ( Amer) Est GFR (MDRD) Non-Af Calcium AST NT-Pro-B Natriuret Pep Urine Urobilinogen 2.0 H Ur Leukocyte Esterase SMALL H Discharge - Discharge Clinical Impression: Hypocalcemia, Hypokalemia, Electrolyte depletion Condition: Stable Disposition: ADMITTED INPATIENT Admitting Provider: Leoanrd (Hospitalist) Unit Admitted: Telemetry Referrals: HO DE OLIVEIRA MD [[facility]] - Follow up as needed
[2019-09-23 17:54] LABS: ALBUMIN 3.6 g/dL (3.5-5.0); ALKALINE PHOSPHATASE 85 U/L (38-126); ANION GAP 9 (5-19); ASPARTATE AMINO TRANSFERASE 12 U/L (14-36); BILIRUBIN,DIRECT 0.1 mg/dL (0.0-0.4); BILIRUBIN,TOTAL 0.4 mg/dL (0.2-1.3); BLOOD UREA NITROGEN 15 mg/dL (7-20); CARBON DIOXIDE 34 mmol/L (22-30); CHLORIDE 91 mmol/L (98-107); GLUCOSE 100 mg/dL (75-110); TOTAL PROTEIN 6.3 g/dL (6.3-8.2)
[2019-09-23] MEDS ORDERED: DIAZEPAM INJ 10 MG/2 ML DISP.SYRIN IV ONE ×2 (17:57→18:06)
[2019-09-23 18:00] LABS: CALCIUM 6.2 mg/dL (8.4-10.2)
[2019-09-23 18:01] LABS: POTASSIUM 2.8 mmol/L (3.6-5.0)
[2019-09-23] MEDS ORDERED: POTASSI CL 20 MEQ/50 ML RIDER 20 MEQ/50 ML RTUPB IV ONE (18:05)
[2019-09-23] MEDS ORDERED: CALCIUM GLUCONATE 1000 MG/10 ML INJ IV ONE ×2 (18:05→18:55)
[2019-09-23] MEDS ORDERED: MAGNESIUM SULFATE/D5W 1 GM/100 ML RTUPB IV ONE (18:06)
[2019-09-23] MEDS ORDERED: POTASSIUM CHLORIDE 10 MEQ TABLET.ER PO ONE (18:06)
[2019-09-23 18:19] LABS: APPEARANCE,URINE CLEAR; BILIRUBIN,URINE NEGATIVE (NEGATIVE); COLOR,URINE YELLOW; GLUCOSE, URINE NEGATIVE (NEGATIVE); KETONES,URINE NEGATIVE (NEGATIVE); LEUKOCYTE ESTERASE,URINE SMALL (NEGATIVE); NITRITE,URINE NEGATIVE (NEGATIVE); PROTEIN,URINE NEGATIVE (NEGATIVE); URINE SPECIFIC GRAVITY 1.011
[2019-09-23 18:42] LABS: VENOUS BLOOD BASE EXCESS 6.4 mmol/L; VENOUS BLOOD HCO3 32.5 mmol/L (20-32); VENOUS BLOOD PCO2 50.8 mmHg (35-63); VENOUS BLOOD PH 7.42 (7.30-7.42)
[2019-09-23] MEDS ORDERED: MAGNESIUM SULFATE 4 GM/100 ML RTUPB IV ONE ×2 (18:54→21:27)
--- NOTE | 2019-09-23 19:19 | RADIOLOGY REPORT (SQ) ---
EXAM DESCRIPTION: CHEST SINGLE VIEW COMPLETED DATE/TIME: 09/23/2019 6:56 pm REASON FOR STUDY: SOB COMPARISON: 02/07/2019 TECHNIQUE: Single frontal radiographic view of the chest acquired. NUMBER OF VIEWS: One view. LIMITATIONS: None. FINDINGS: LUNGS AND PLEURA: No pneumothorax. No consolidation or pleural effusion. MEDIASTINUM AND HILAR STRUCTURES: Stable. HEART AND VASCULAR STRUCTURES: Stable. BONES: No acute findings. HARDWARE: None in the chest. OTHER: No other significant finding. IMPRESSION: NO ACUTE FINDINGS. TECHNICAL DOCUMENTATION: JOB ID: [id number] [employer]- All Rights Reserved Reading location - IP/workstation name: Voice Assist
--- NOTE | 2019-09-23 19:27 | PDOC H&P ---
History of Present Illness Admission Date/PCP: 09/23/19 18:41 EMILY PARKER, LAWSON-Jimbo Patient complains of: Muscle spasms, shortness of breath, numbness and tingling History of Present Illness: SALLY TURK is a 49 year old female with a history of fibromyalgia, cervical vaginal cancer, hypertension, anxiety, depression, who presents to the hospital with complaints of muscle spasms, facial paresthesias, paresthesias in her hands, and initial heaviness in breathing. Patient describes the sensation as pausing in her face and chest. Patient states that she has been receiving cisplatin therapy and the last dose was on Tuesday last week. Since then she is also expressed receiving radiation on Tuesday last week after which she began having profuse diarrhea. She endorses several episodes of nausea vomiting for the past week. Patient states that diarrhea is improving but she did have about 4 small loose stools in the past 24 hours. Of note patient cervicovaginal cancer is recently diagnosed in June 2019. She follows at [facility] with an oncologist and also radiation here. Past Medical History Cardiac Medical History: Reports: Hypertension Denies: Myocardial Infarction Pulmonary Medical History: Denies: Asthma, Bronchitis, Chronic Obstructive Pulmonary Disease (COPD) Neurological Medical History: Denies: Seizures GI Medical History: Denies: Hepatitis, Hiatal Hernia Musculoskeltal Medical History: Reports: Arthritis - Spurs in back Psychiatric Medical History: Reports: Depression - on medication, General Anxiety Disorder Hematology: Reports: Anemia - with Denies: Sickle Cell Disease Past Surgical History Past Surgical History: Reports: Section, Orthopedic Surgery, Tubal Ligation Denies: Amputation, Mastectomy, Pacemaker Social History Smoking Status: Current Every Day Smoker Frequency of Alcohol Use: Rare Hx Recreational Drug Use: Yes Drugs: Marijuana Hx Prescription Drug Abuse: No - Advance Directive Resuscitation Status: Full Code Family History Family History: DM, Hyperlipidemia, Hypertension Parental Family History Reviewed: Yes Children Family History Reviewed: NA Sibling(s) Family History Reviewed.: Yes Medication/Allergy Home Medications: Hydrochlorothiazide [Hydrodiuril 25 mg Tablet] 25 mg PO QAM #14 tablet 02/07/19 Escitalopram Oxalate [Lexapro] 20 mg PO DAILY 06/08/19 Hydrocodone/Acetaminophen [[place] 10-325 mg Tablet] 1 tab PO Q6HP PRN 06/08/19 Hydroxyzine HCl [Atarax 50 mg Tablet] 50 mg PO Q6HP PRN 06/08/19 Loratadine [Claritin] 10 mg PO DAILYP PRN 06/08/19 Losartan Potassium [Cozaar 100 mg Tablet] 100 mg PO DAILY 06/08/19 Norethindrone Acetate [Aygestin 5 mg Tablet] 10 mg PO DAILY 06/08/19 Orphenadrine Citrate 100 mg PO BIDP PRN 06/08/19 Propranolol HCl [Inderal 40 mg Tablet] 40 mg PO Q12 06/08/19 Quetiapine Fumarate [Seroquel 100 mg Tablet] 100 mg PO DAILY 06/08/19 Allergies/Adverse Reactions: bacitracin [From Neosporin] Allergy (Severe, Verified 06/06/19 10:59) Blisters neomycin sulfate [From Neosporin] Allergy (Severe, Verified 06/06/19 10:59) Blisters nitrous oxide [Nitrous Oxide] Allergy (Severe, Verified 06/06/19 10:59) "Fight or Flight" reaction polymyxin B [From Neosporin] Allergy (Severe, Verified 06/06/19 10:59) Blisters Sulfa (Sulfonamide Antibiotics) Allergy (Severe, Verified 06/06/19 10:59) Jenkins on the inside tizanidine HCl [From Zanaflex] Allergy (Severe, Verified 06/06/19 10:59) Blood in stool Review of Systems Constitutional: ABSENT: night sweats Eyes: ABSENT: visual disturbances Nose, Mouth, and Throat: PRESENT: as per HPI Cardiovascular: PRESENT: chest pain Respiratory: PRESENT: dyspnea Gastrointestinal: PRESENT: diarrhea, nausea, vomiting Musculoskeletal: PRESENT: muscle weakness Neurological: PRESENT: numbness, paresthesias. ABSENT: confusion, convulsions Psychiatric: PRESENT: anxiety Endocrine: ABSENT: cold intolerance Hematologic/Lymphatic: ABSENT: easy bleeding Allergic/Immunologic: PRESENT: seasonal rhinorrhea Physical Exam Vital Signs: Temp Pulse Resp BP Pulse Ox 98.7 F 91 18 125/86 H 100 09/23/19 17:28 09/23/19 17:28 09/23/19 17:28 09/23/19 17:28 09/23/19 17:28 Intake & Output 09/22/19 09/23/19 09/24/19 06:59 06:59 06:59 Weight 106.8 kg General appearance: PRESENT: cooperative, mild distress Head exam: PRESENT: normocephalic Mouth exam: PRESENT: dry mucosa Neck exam: ABSENT: JVD Respiratory exam: PRESENT: clear to auscultation sweta, symmetrical, unlabored. ABSENT: tachypnea, wheezes Cardiovascular exam: PRESENT: RRR, +S1, +S2. ABSENT: systolic murmur, tachycardia GI/Abdominal exam: PRESENT: normal bowel sounds, soft. ABSENT: rebound, rigid, tenderness Musculoskeletal exam: PRESENT: ambulatory Neurological exam: PRESENT: alert, awake, oriented to person, oriented to place, oriented to time, oriented to situation, other - Spasms in bilateral cheeks, recurrent spasms in her abdomen and chest wall Results Laboratory Results: 09/23/19 17:20 09/23/19 17:20 09/23/19 09/23/19 09/23/19 17:20 17:20 17:20 WBC 5.0 RBC 3.78 Hgb 11.4 L Hct 32.4 L MCV 86 MCH 30.0 MCHC 35.0 RDW 13.8 Plt Count 157 Seg Neutrophils % 70.8 VBG pH VBG pCO2 VBG HCO3 VBG Base Excess Sodium 134.4 L Potassium 2.8 L* Chloride 91 L Carbon Dioxide 34 H Anion Gap 9 BUN 15 Creatinine 1.49 H Est GFR ( Amer) 45 L Glucose 100 Calcium 6.2 L* Magnesium 0.5 L* Total Bilirubin 0.4 AST 12 L Alkaline Phosphatase 85 Total Protein 6.3 Albumin 3.6 Urine Color Urine Appearance Urine pH Ur Specific [place] Urine Protein Urine Glucose (UA) Urine Ketones Urine Blood Urine Nitrite Ur Leukocyte Esterase Urine WBC (Auto) Urine RBC (Auto) 09/23/19 09/23/19 17:56 18:08 WBC RBC Hgb Hct MCV MCH MCHC RDW Plt Count Seg Neutrophils % VBG pH 7.42 VBG pCO2 50.8 VBG HCO3 32.5 H VBG Base Excess 6.4 Sodium Potassium Chloride Carbon Dioxide Anion Gap BUN Creatinine Est GFR ( Amer) Glucose Calcium Magnesium Total Bilirubin AST Alkaline Phosphatase Total Protein Albumin Urine Color YELLOW Urine Appearance CLEAR Urine pH 8.0 Ur Specific [place] 1.011 Urine Protein NEGATIVE Urine Glucose (UA) NEGATIVE Urine Ketones NEGATIVE Urine Blood NEGATIVE Urine Nitrite NEGATIVE Ur Leukocyte Esterase SMALL H Urine WBC (Auto) 12 Urine RBC (Auto) 1 09/23/19 09/23/19 17:20 17:20 Troponin I < 0.012 NT-Pro-B Natriuret Pep 159 H Assessment and Plan - Diagnosis (1) Hypocalcemia Is this a current diagnosis for this admission?: Yes Plan: Severe symptomatic hypocalcemia secondary to cisplatin characterized by tetany, spasms and paresthesias Given 2 g calcium gluconate bolus now. We will continue slow infusion of calcium gluconate over next few hours while monitoring serial CMPs Replete magnesium as patient is significantly hypomagnesemic at this moment Check phosphate level Monitor on telemetry Check PTH, vitamin D levels (2) Muscle spasm Is this a current diagnosis for this admission?: Yes Plan: valium to help with muscle spasms and nausea (3) Cervical cancer Qualifiers: Malignant neoplasm of cervix location: overlapping locations Qualified Code(s): C53.8 - Malignant neoplasm of overlapping sites of cervix uteri Is this a current diagnosis for this admission?: Yes Plan: Recently diagnosed Outpatient follow-up with heme-onc (4) Electrolyte depletion Is this a current diagnosis for this admission?: Yes Plan: Patient experienced severe electrolyte repletion in form of hypomagnesemia, hypokalemia and hypocalcemia These are secondary to cisplatin therapy along with prolonged episodes of diarrhea and vomiting We will replete as needed (5) Hypokalemia Is this a current diagnosis for this admission?: Yes Plan: Aggressive repletion (6) Tobacco abuse Is this a current diagnosis for this admission?: Yes Plan: Counseled on cessation We will provide replacement if willing (7) Prerenal acute renal failure Is this a current diagnosis for this admission?: Yes Plan: Secondary to excessive GI losses IV fluids (8) Diarrhea due to drug Is this a current diagnosis for this admission?: Yes Plan: Check C. difficile to rule out infectious cause Start Imodium on C. difficile results as negative - Time Time Spent with patient: 35 or more minutes
[2019-09-23] MEDS ORDERED: LORAZEPAM 0.5 MG TABLET PO PRN (19:30)
[2019-09-23] MEDS ORDERED: CYCLOBENZAPRINE HCL 10 MG TABLET PO PRN (19:32)
[2019-09-23] MEDS ORDERED: DIAZEPAM 2 MG TABLET PO PRN (19:38)
[2019-09-23] MEDS ORDERED: CALCIUM GLUCONATE 1,000 MG in DEXTROSE 5%-WATER 50 ML IV ONE (20:30)
[2019-09-23] MEDS ORDERED: NORMAL SALINE IV PRN ×2 (21:30)
[2019-09-23] MEDS: OXYCODONE-ACETAMINOPHEN 5-325 MG TABLET PO PRN (21:30)
[2019-09-23] MEDS ORDERED: CALCIUM GLUCONATE IV PRN ×2 (21:30)
[2019-09-23] MEDS: NORMAL SALINE IV PRN ×2 (21:36)
[2019-09-23] MEDS: CALCIUM GLUCONATE IV PRN ×2 (21:36)
[2019-09-23 23:37] LABS: ALBUMIN 3.1 g/dL (3.5-5.0); ALKALINE PHOSPHATASE 83 U/L (38-126); ANION GAP 11 (5-19); ASPARTATE AMINO TRANSFERASE 10 U/L (14-36); BLOOD UREA NITROGEN 14 mg/dL (7-20); CARBON DIOXIDE 28 mmol/L (22-30); CHLORIDE 93 mmol/L (98-107); GLUCOSE 93 mg/dL (75-110); POTASSIUM 3.4 mmol/L (3.6-5.0); TOTAL PROTEIN 5.6 g/dL (6.3-8.2)
--- NOTE | 2019-09-23 23:41 | EKG REPORT ---
SEVERITY:- NORMAL ECG - SINUS RHYTHM : Confirmed by: Josselin Elizabeth MD 23-Sep-2019 23:41:22
[2019-09-23 23:50] LABS: BILIRUBIN,DIRECT 0.2 mg/dL (0.0-0.4); BILIRUBIN,TOTAL 0.5 mg/dL (0.2-1.3)
[2019-09-23 23:59] LABS: CALCIUM 6.6 mg/dL (8.4-10.2)
[2019-09-24] MEDS: PROPRANOLOL HCL 40 MG TABLET PO SCH ×3 (00:44→21:14)
[2019-09-24] MEDS: OXYCODONE-ACETAMINOPHEN 5-325 MG TABLET PO PRN ×3 (04:35→18:29)
[2019-09-24] MEDS: PROMETHAZINE HCL INJ 25 MG/1 ML VIAL IV PRN ×3 (04:40→21:14)
[2019-09-24 05:57] LABS: ABSOLUTE LYMPHOCYTES (AUTO) 0.9 10^3/uL (0.5-4.7); ABSOLUTE MONOCYTES (AUTO) 0.5 10^3/uL (0.1-1.4); ABSOLUTE NEUT (AUTO) 2.8 10^3/uL (1.7-8.2); BASOPHILS % (AUTO) 0.2 % (0-2); EOSINOPHILS % (AUTO) 1.1 % (0-6); HEMOGLOBIN 10.9 g/dL (12.0-15.5); LYMPHOCYTES % (AUTO) 20.5 % (13-45); MEAN CORPUSCULAR HEMOGLOBIN 30.1 pg (27.0-33.4); MEAN CORPUSCULAR HGB CONC 35.2 g/dL (32.0-36.0); MEAN CORPUSCULAR VOLUME 85 fl (80-97); MONOCYTES % (AUTO) 11.9 % (3-13); PLATELET COUNT 152 10^3/uL (150-450); RED BLOOD COUNT 3.63 10^6/uL (3.72-5.28); RED CELL DISTRIBUTION WIDTH 13.9 % (11.5-14.0); SEGMENTED NEUTROPHILS % (AUTO) 66.3 % (42-78); TOTAL CELLS COUNTED % (AUTO) 100 %; WHITE BLOOD COUNT 4.2 10^3/uL (4.0-10.5)
[2019-09-24 06:25] LABS: BLOOD UREA NITROGEN 12 mg/dL (7-20); GLUCOSE 90 mg/dL (75-110)
[2019-09-24 06:26] LABS: ALBUMIN 3.4 g/dL (3.5-5.0); ALKALINE PHOSPHATASE 105 U/L (38-126); ANION GAP 12 (5-19); ASPARTATE AMINO TRANSFERASE 12 U/L (14-36); BILIRUBIN,DIRECT 0.1 mg/dL (0.0-0.4); BILIRUBIN,TOTAL 0.5 mg/dL (0.2-1.3); CARBON DIOXIDE 27 mmol/L (22-30); CHLORIDE 96 mmol/L (98-107); PHOSPHORUS 3.1 mg/dL (2.5-4.5); POTASSIUM 3.2 mmol/L (3.6-5.0); TOTAL PROTEIN 6.1 g/dL (6.3-8.2)
[2019-09-24 06:37] LABS: CALCIUM 7.1 mg/dL (8.4-10.2)
--- NOTE | 2019-09-24 08:03 | EKG REPORT ---
SEVERITY:- NORMAL ECG - SINUS RHYTHM : Confirmed by: Elvis Robins MD 24-Sep-2019 08:02:39
[2019-09-24] MEDS ORDERED: MAGNESIUM SULFATE/D5W 1 GM/100 ML RTUPB IV ONE (08:05)
[2019-09-24] MEDS ORDERED: NORMAL SALINE 1000 ML 1,000 ML IV ONE (08:08)
[2019-09-24] MEDS: CALCIUM CARBONATE 500 MG TABLET PO SCH ×3 (09:45→18:29)
[2019-09-24] MEDS: LOSARTAN POTASSIUM 50 MG TABLET PO SCH (09:46)
[2019-09-24] MEDS: ESCITALOPRAM OXALATE 10 MG TABLET PO SCH (09:46)
[2019-09-24] MEDS: ENOXAPARIN SODIUM INJ 40 MG/0.4 ML DISP.SYRIN SUBCUT SCH (09:47)
[2019-09-24] MEDS ORDERED: HYDROCHLOROTHIAZIDE 25 MG TABLET PO SCH (10:00)
--- NOTE | 2019-09-24 14:48 | PDOC PROGRESS REPORT ---
Subjective Subjective:: Patient states that a tetany and neuropathy is improved today significantly. Had 2 small loose bowel movements Reason For Visit: SEVERE SYMTOMATIC HYPOCALCEMIA Physical Exam Vital Signs: Temp Pulse Resp BP Pulse Ox 98.3 F 89 18 107/62 98 09/24/19 11:00 09/24/19 11:00 09/24/19 11:00 09/24/19 11:00 09/23/19 23:42 Intake & Output 09/23/19 09/24/19 09/25/19 06:59 06:59 06:59 Intake Total 150 1918 Balance 150 1918 Weight 98.3 kg General appearance: PRESENT: no acute distress, cooperative Mouth exam: PRESENT: dry mucosa Neck exam: ABSENT: JVD Respiratory exam: PRESENT: chest wall tenderness, clear to auscultation sweta, symmetrical, unlabored. ABSENT: rhonchi, tachypnea, wheezes Cardiovascular exam: PRESENT: RRR, +S1, +S2. ABSENT: systolic murmur, tach ycardia GI/Abdominal exam: PRESENT: normal bowel sounds, soft. ABSENT: rebound, rigid, tenderness Extremities exam: ABSENT: pedal edema Neurological exam: PRESENT: alert, awake, oriented to person, oriented to place, oriented to time, oriented to situation Results Laboratory Results: 09/24/19 04:24 09/24/19 04:24 09/23/19 09/23/19 09/23/19 17:20 17:20 17:20 WBC 5.0 RBC 3.78 Hgb 11.4 L Hct 32.4 L MCV 86 MCH 30.0 MCHC 35.0 RDW 13.8 Plt Count 157 Seg Neutrophils % 70.8 VBG pH VBG pCO2 VBG HCO3 VBG Base Excess Sodium 134.4 L Potassium 2.8 L* Chloride 91 L Carbon Dioxide 34 H Anion Gap 9 BUN 15 Creatinine 1.49 H Est GFR ( Amer) 45 L Glucose 100 Calcium 6.2 L* Phosphorus Magnesium 0.5 L* Total Bilirubin 0.4 AST 12 L Alkaline Phosphatase 85 Total Protein 6.3 Albumin 3.6 PTH Intact Urine Color Urine Appearance Urine pH Ur Specific [place] Urine Protein Urine Glucose (UA) Urine Ketones Urine Blood Urine Nitrite Ur Leukocyte Esterase Urine WBC (Auto) Urine RBC (Auto) 09/23/19 09/23/19 09/23/19 17:20 17:56 18:08 WBC RBC Hgb Hct MCV MCH MCHC RDW Plt Count Seg Neutrophils % VBG pH 7.42 VBG pCO2 50.8 VBG HCO3 32.5 H VBG Base Excess 6.4 Sodium Potassium Chloride Carbon Dioxide Anion Gap BUN Creatinine Est GFR ( Amer) Glucose Calcium Phosphorus 2.7 Magnesium Total Bilirubin AST Alkaline Phosphatase Total Protein Albumin PTH Intact Urine Color YELLOW Urine Appearance CLEAR Urine pH 8.0 Ur Specific [place] 1.011 Urine Protein NEGATIVE Urine Glucose (UA) NEGATIVE Urine Ketones NEGATIVE Urine Blood NEGATIVE Urine Nitrite NEGATIVE Ur Leukocyte Esterase SMALL H Urine WBC (Auto) 12 Urine RBC (Auto) 1 09/23/19 09/23/19 09/24/19 22:40 22:40 04:24 WBC 4.2 RBC 3.63 L Hgb 10.9 L Hct 31.0 L MCV 85 MCH 30.1 MCHC 35.2 RDW 13.9 Plt Count 152 Seg Neutrophils % 66.3 VBG pH VBG pCO2 VBG HCO3 VBG Base Excess Sodium 131.7 L Potassium 3.4 L Chloride 93 L Carbon Dioxide 28 Anion Gap 11 BUN 14 Creatinine 1.42 H Est GFR ( Amer) 48 L Glucose 93 Calcium 6.6 L* Phosphorus Magnesium 1.0 L* Total Bilirubin 0.5 AST 10 L Alkaline Phosphatase 83 Total Protein 5.6 L Albumin 3.1 L PTH Intact 177.9 H Urine Color Urine Appearance Urine pH Ur Specific [place] Urine Protein Urine Glucose (UA) Urine Ketones Urine Blood Urine Nitrite Ur Leukocyte Esterase Urine WBC (Auto) Urine RBC (Auto) 09/24/19 04:24 WBC RBC Hgb Hct MCV MCH MCHC RDW Plt Count Seg Neutrophils % VBG pH VBG pCO2 VBG HCO3 VBG Base Excess Sodium 134.8 L Potassium 3.2 L Chloride 96 L Carbon Dioxide 27 Anion Gap 12 BUN 12 Creatinine 1.33 H Est GFR ( Amer) 52 L Glucose 90 Calcium 7.1 L Phosphorus 3.1 Magnesium 1.8 Total Bilirubin 0.5 AST 12 L Alkaline Phosphatase 105 Total Protein 6.1 L Albumin 3.4 L PTH Intact Urine Color Urine Appearance Urine pH Ur Specific [place] Urine Protein Urine Glucose (UA) Urine Ketones Urine Blood Urine Nitrite Ur Leukocyte Esterase Urine WBC (Auto) Urine RBC (Auto) 09/23/19 09/23/19 17:20 17:20 Troponin I < 0.012 NT-Pro-B Natriuret Pep 159 H Impressions: Chest X-Ray 09/23/19 17:21 IMPRESSION: NO ACUTE FINDINGS. Assessment and Plan - Diagnosis (1) Cisplatin adverse reaction Is this a current diagnosis for this admission?: Yes Plan: Characterized by severe nausea, vomiting, diarrhea, hypocalcemia and polyneuropathy. Patient states she has received her last dose of cisplatin last Tuesday. (2) Hypomagnesemia Is this a current diagnosis for this admission?: Yes Plan: Secondary to severe nausea vomiting may have been responsible for a lot of patient's symptoms Was 0.5 on admission but has now resolved to normal limits. 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 Valium to help with muscle spasms and nausea (5) Cervical cancer Qualifiers: Malignant neoplasm of cervix location: overlapping locations Qualified Code(s): C53.8 - Malignant neoplasm of overlapping sites of cervix uteri Is this a current diagnosis for this admission?: Yes Plan: Recently diagnosed Outpatient follow-up with heme-onc (6) Hypokalemia Is this a current diagnosis for this admission?: Yes Plan: Aggressive repletion (7) Tobacco abuse Is this a current diagnosis for this admission?: Yes (8) Prerenal acute renal failure Is this a current diagnosis for this admission?: Yes Plan: Secondary to excessive GI losses IV fluids (9) Diarrhea due to drug Is this a current diagnosis for this admission?: Yes Plan: May also be due to radiation. Check C. difficile to rule out infectious cause Start Imodium on C. difficile results as negative. - Time Time Spent with patient: 15-24 minutes
[2019-09-24 15:00] LABS: C DIFFICILE GDH NEGATIVE (NEGATIVE)
[2019-09-24] MEDS: CYCLOBENZAPRINE HCL 10 MG TABLET PO PRN (16:01)
[2019-09-24 16:12] LABS: ALBUMIN 3.4 g/dL (3.5-5.0); ALKALINE PHOSPHATASE 94 U/L (38-126); ANION GAP 9 (5-19); ASPARTATE AMINO TRANSFERASE 11 U/L (14-36); BILIRUBIN,DIRECT 0.2 mg/dL (0.0-0.4); BILIRUBIN,TOTAL 0.4 mg/dL (0.2-1.3); BLOOD UREA NITROGEN 13 mg/dL (7-20); CARBON DIOXIDE 31 mmol/L (22-30); CHLORIDE 93 mmol/L (98-107); GLUCOSE 97 mg/dL (75-110); POTASSIUM 3.2 mmol/L (3.6-5.0)
[2019-09-24] MEDS ORDERED: CALCIUM GLUCONATE 1000 MG/10 ML INJ IV ONE (17:18)
[2019-09-24] MEDS: NICOTINE 14 MG/24 HR PATCH.TD24 TD SCH (18:29)
[2019-09-24] MEDS: POTASSIUM CHLORIDE 10 MEQ TABLET.ER PO SCH ×2 (18:29→23:00)
[2019-09-24] MEDS ORDERED: CALCIUM GLUCONATE 2,000 MG in DEXTROSE 5%-WATER 100 ML IV ONE (19:00)
[2019-09-24] MEDS: NORMAL SALINE IV PRN ×2 (22:49)
[2019-09-24] MEDS: CALCIUM GLUCONATE IV PRN ×2 (22:49)
[2019-09-25] MEDS: PROMETHAZINE HCL INJ 25 MG/1 ML VIAL IV PRN ×3 (05:23→17:07)
[2019-09-25] MEDS: CYCLOBENZAPRINE HCL 10 MG TABLET PO PRN ×2 (05:23→21:02)
[2019-09-25 06:30] LABS: ABSOLUTE LYMPHOCYTES (AUTO) 0.6 10^3/uL (0.5-4.7); ABSOLUTE MONOCYTES (AUTO) 0.7 10^3/uL (0.1-1.4); ABSOLUTE NEUT (AUTO) 3.7 10^3/uL (1.7-8.2); BASOPHILS % (AUTO) 0.2 % (0-2); EOSINOPHILS % (AUTO) 0.5 % (0-6); HEMATOCRIT 28.2 % (36.0-47.0); HEMOGLOBIN 10.1 g/dL (12.0-15.5); MEAN CORPUSCULAR HEMOGLOBIN 30.8 pg (27.0-33.4); MEAN CORPUSCULAR HGB CONC 35.9 g/dL (32.0-36.0); MEAN CORPUSCULAR VOLUME 86 fl (80-97); MONOCYTES % (AUTO) 13.1 % (3-13); PLATELET COUNT 151 10^3/uL (150-450); RED BLOOD COUNT 3.28 10^6/uL (3.72-5.28); SEGMENTED NEUTROPHILS % (AUTO) 73.2 % (42-78); TOTAL CELLS COUNTED % (AUTO) 100 %
[2019-09-25 07:05] LABS: ALBUMIN 3.1 g/dL (3.5-5.0); ALKALINE PHOSPHATASE 90 U/L (38-126); ANION GAP 9 (5-19); ASPARTATE AMINO TRANSFERASE 11 U/L (14-36); BILIRUBIN,DIRECT 0.2 mg/dL (0.0-0.4); BILIRUBIN,TOTAL 0.4 mg/dL (0.2-1.3); BLOOD UREA NITROGEN 11 mg/dL (7-20); CALCIUM 8.1 mg/dL (8.4-10.2); CARBON DIOXIDE 28 mmol/L (22-30); CHLORIDE 95 mmol/L (98-107); GLUCOSE 94 mg/dL (75-110); PHOSPHORUS 2.9 mg/dL (2.5-4.5); POTASSIUM 3.6 mmol/L (3.6-5.0); TOTAL PROTEIN 5.8 g/dL (6.3-8.2)
[2019-09-25] MEDS ORDERED: POTASSIUM CHLORIDE 10 MEQ TABLET.ER PO ONE (08:00)
[2019-09-25] MEDS ORDERED: LOPERAMIDE HCL 2 MG CAPSULE PO PRN (08:03)
[2019-09-25] MEDS ORDERED: CALCIUM GLUCONATE 1000 MG/10 ML INJ IV ONE (08:45)
[2019-09-25] MEDS ORDERED: MAGNESIUM SULFATE 4 GM/100 ML RTUPB IV ONE (09:30)
[2019-09-25] MEDS: CALCIUM CARBONATE 500 MG TABLET PO SCH ×4 (10:03→21:02)
[2019-09-25] MEDS: LOSARTAN POTASSIUM 50 MG TABLET PO SCH (10:03)
[2019-09-25] MEDS: ESCITALOPRAM OXALATE 10 MG TABLET PO SCH (10:04)
[2019-09-25] MEDS: ENOXAPARIN SODIUM INJ 40 MG/0.4 ML DISP.SYRIN SUBCUT SCH (10:16)
[2019-09-25] MEDS: OXYCODONE-ACETAMINOPHEN 5-325 MG TABLET PO PRN ×2 (10:19→23:17)
[2019-09-25] MEDS: NICOTINE 14 MG/24 HR PATCH.TD24 TD SCH (10:20)
[2019-09-25] MEDS: PROPRANOLOL HCL 40 MG TABLET PO SCH ×2 (10:20→21:02)
[2019-09-25] MEDS: FLUTICASONE NASAL SPRAY 50 MCG/SPRY 120 SPRAY/16 GM NAREB SCH (10:21)
[2019-09-25] MEDS ORDERED: LORAZEPAM 0.5 MG TABLET PO PRN (11:36)
[2019-09-25] MEDS ORDERED: ONDANSETRON HCL INJ/PF 4 MG/2 ML SDV IV PRN (11:37)
[2019-09-25] MEDS ORDERED: PROMETHAZINE HCL INJ 25 MG/1 ML VIAL IV ONE (11:41)
--- NOTE | 2019-09-25 11:58 | PDOC PROGRESS REPORT ---
Subjective Progress Note for:: 09/25/19 Subjective:: Patient states that a tetany and neuropathy have resolved. She still gets occasional muscle spasms which she says is normal for her from a fibromyalgia but nothing like it was when she came in. She had some episodes of nausea vomiting last night. Reason For Visit: SEVERE SYMTOMATIC HYPOCALCEMIA Physical Exam Vital Signs: Temp Pulse Resp BP Pulse Ox 98.3 F 86 16 128/68 H 99 09/25/19 08:00 09/25/19 08:00 09/25/19 08:00 09/25/19 08:00 09/25/19 08:00 Intake & Output 09/24/19 09/25/19 09/26/19 06:59 06:59 06:59 Intake Total 150 4186 Balance 150 4186 Weight 98.3 kg 102.7 kg General appearance: PRESENT: no acute distress, cooperative Eye exam: PRESENT: EOMI Respiratory exam: PRESENT: clear to auscultation sweta, symmetrical, unlabored. ABSENT: tachypnea, wheezes Cardiovascular exam: PRESENT: RRR, +S1, +S2. ABSENT: irregular rhythm, tachycardia GI/Abdominal exam: PRESENT: normal bowel sounds, soft. ABSENT: rebound, rigid, tenderness Neurological exam: PRESENT: alert, awake, oriented to person, oriented to place, oriented to time, oriented to situation Results Laboratory Results: 09/25/19 04:42 09/25/19 04:42 09/24/19 09/25/19 09/25/19 15:15 04:42 04:42 WBC 5.0 RBC 3.28 L Hgb 10.1 L Hct 28.2 L MCV 86 MCH 30.8 MCHC 35.9 RDW 14.0 Plt Count 151 Seg Neutrophils % 73.2 Sodium 133.3 L 131.8 L Potassium 3.2 L 3.6 Chloride 93 L 95 L Carbon Dioxide 31 H 28 Anion Gap 9 9 BUN 13 11 Creatinine 1.29 H 1.16 Est GFR ( Amer) 54 L > 60 Glucose 97 94 Calcium 7.0 L* 8.1 L Phosphorus 2.9 Magnesium 1.1 L* Total Bilirubin 0.4 0.4 AST 11 L 11 L Alkaline Phosphatase 94 90 Total Protein 6.0 L 5.8 L Albumin 3.4 L 3.1 L 09/23/19 09/23/19 17:20 17:20 Troponin I < 0.012 NT-Pro-B Natriuret Pep 159 H Impressions: Chest X-Ray 09/23/19 17:21 IMPRESSION: NO ACUTE FINDINGS. Assessment and Plan - Diagnosis (1) Cisplatin adverse reaction Is this a current diagnosis for this admission?: Yes Plan: Characterized by severe nausea, vomiting, diarrhea, hypocalcemia and polyneuropathy. Patient states she has received her last dose of cisplatin last Tuesday. (2) Hypomagnesemia Is this a current diagnosis for this admission?: Yes Plan: Secondary to severe nausea vomiting Was 0.5 on admission but has now resolved to normal limits. 09/25/2019 Magnesium is low once again today secondary to several bouts of vomiting last night. I replete aggressively with 4 g of magnesium sulfate. Ultimately, we will need to resolve her nausea vomiting and fairly limited by have mild QT prolongation I will use Phenergan but increase dose to 25 mg every 6 hours as needed and Ativan 1 mg every 6 hours as needed for nausea vomiting. Have instructed patient to ask for these medications before meals to allow her to hold down her meals. 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 I will discontinue slow calcium gluconate infusion at this point. I will give 1 more gram of calcium gluconate bolus and have increased calcium carbonate to 1 g 4 times daily. We will continue to monitor CMP and ultimately will need to ensure her magnesium levels are adequate. (4) Muscle spasm Is this a current diagnosis for this admission?: Yes Plan: Tetany has resolved. Flexeril as needed. (5) Cervical cancer Qualifiers: Malignant neoplasm of cervix location: overlapping locations Qualified Code(s): C53.8 - Malignant neoplasm of overlapping sites of cervix uteri Is this a current diagnosis for this admission?: Yes Plan: Recently diagnosed I have consulted Dr. Yee to help with management of patient's chemo induced symptoms. (6) Hypokalemia Is this a current diagnosis for this admission?: Yes Plan: Resolved following aggressive repletion's (7) Tobacco abuse Is this a current diagnosis for this admission?: Yes Plan: Counseled on cessation Placed on nicotine patch (8) Prerenal acute renal failure Is this a current diagnosis for this admission?: Yes Plan: Secondary to dehydration from excessive GI losses Resolved currently following IV fluids (9) Diarrhea due to drug Is this a current diagnosis for this admission?: Yes Plan: May also be due to radiation. Check C. difficile to rule out infectious cause Start Imodium on C. difficile results as negative. 09/25/2019 C. difficile test was negative. Started on Imodium. (10) Fibromyalgia Is this a current diagnosis for this admission?: Yes Plan: Continue with escitalopram and Percocet - Time Time Spent with patient: 15-24 minutes
[2019-09-25] MEDS: LORAZEPAM 0.5 MG TABLET PO PRN ×2 (17:07→23:17)
[2019-09-26 04:56] LABS: ABSOLUTE LYMPHOCYTES (AUTO) 0.8 10^3/uL (0.5-4.7); ABSOLUTE MONOCYTES (AUTO) 0.6 10^3/uL (0.1-1.4); ABSOLUTE NEUT (AUTO) 2.1 10^3/uL (1.7-8.2); BASOPHILS % (AUTO) 0.3 % (0-2); EOSINOPHILS % (AUTO) 0.6 % (0-6); HEMATOCRIT 27.7 % (36.0-47.0); HEMOGLOBIN 9.9 g/dL (12.0-15.5); MEAN CORPUSCULAR HEMOGLOBIN 30.6 pg (27.0-33.4); MEAN CORPUSCULAR HGB CONC 35.8 g/dL (32.0-36.0); MEAN CORPUSCULAR VOLUME 85 fl (80-97); MONOCYTES % (AUTO) 16.6 % (3-13); PLATELET COUNT 165 10^3/uL (150-450); RED BLOOD COUNT 3.24 10^6/uL (3.72-5.28); RED CELL DISTRIBUTION WIDTH 13.9 % (11.5-14.0); SEGMENTED NEUTROPHILS % (AUTO) 59.5 % (42-78); TOTAL CELLS COUNTED % (AUTO) 100 %; WHITE BLOOD COUNT 3.5 10^3/uL (4.0-10.5)
[2019-09-26 05:19] LABS: ALBUMIN 3.2 g/dL (3.5-5.0); ALKALINE PHOSPHATASE 90 U/L (38-126); ANION GAP 9 (5-19); ASPARTATE AMINO TRANSFERASE 9 U/L (14-36); BILIRUBIN,DIRECT 0.2 mg/dL (0.0-0.4); BILIRUBIN,TOTAL 0.3 mg/dL (0.2-1.3); BLOOD UREA NITROGEN 11 mg/dL (7-20); CALCIUM 9.1 mg/dL (8.4-10.2); CARBON DIOXIDE 28 mmol/L (22-30); CHLORIDE 97 mmol/L (98-107); GLUCOSE 96 mg/dL (75-110); PHOSPHORUS 3.8 mg/dL (2.5-4.5); POTASSIUM 3.5 mmol/L (3.6-5.0); TOTAL PROTEIN 5.8 g/dL (6.3-8.2)
[2019-09-26] MEDS: LORAZEPAM 0.5 MG TABLET PO PRN ×3 (06:11→21:22)
[2019-09-26] MEDS: PROMETHAZINE HCL INJ 25 MG/1 ML VIAL IV PRN ×2 (06:16→12:16)
--- NOTE | 2019-09-26 07:47 | EKG REPORT ---
SEVERITY:- NORMAL ECG - SINUS RHYTHM : Confirmed by: Elvis Robins MD 26-Sep-2019 07:46:00
[2019-09-26] MEDS: NORMAL SALINE 1000 ML 1,000 ML IV PRN (08:13)
--- NOTE | 2019-09-26 09:16 | PDOC CONSULTATION ---
Consultation Consult Date: 09/26/19 Attending physician:: VIRGINIE CARTER Provider Consulted: BRANDI ESPINOZA Consult reason:: Cervical cancer currently on concurrent chemoradiation here with intractable nausea and vomiting, acute renal failure, dehydration History of Present Illness Admission Date/PCP: 09/23/19 18:41 EDER TRUONG Patient complains of: Nausea vomiting, weakness History of Present Illness: SALLY TURK is a 49 year old female with known history of cervical cancer who is on concurrent chemoradiation last dose of chemo was approximately a week ago, she was getting cisplatin, unfortunately presents with severe nausea and vomiting dehydration, she just got her first dose of brachii therapy in [place], soon after that her nausea and vomiting and diarrhea worsened and it was continuous flow from the rectum with clear liquid, ultimately she presented and her kidney function was worsened she was in acute renal failure, prerenal azotemia, thus far she is been aggressively hydrated but still has been persistently nauseous over the last 24 hours. She vomited yesterday. Past Medical History Cardiac Medical History: Reports: Coronary Artery Disease - HIGH CHOL, Hypert ension Denies: Myocardial Infarction Pulmonary Medical History: Reports: Pneumonia - "walking" yrs ago Denies: Asthma, Bronchitis, Chronic Obstructive Pulmonary Disease (COPD) Neurological Medical History: Denies: Seizures GI Medical History: Denies: Hepatitis, Hiatal Hernia Musculoskeltal Medical History: Reports: Arthritis - Spurs in back Psychiatric Medical History: Reports: Depression - on medication, General Anxiety Disorder Hematology: Reports: Anemia - with Denies: Sickle Cell Disease Past Surgical History Past Surgical History: Reports: Section, Orthopedic Surgery, Tubal Ligation Denies: Amputation, Mastectomy, Pacemaker Social History Information Source: Patient Smoking Status: Smoker,Current Status Unk Electronic Cigarette use?: No Frequency of Alcohol Use: Occasional Hx Recreational Drug Use: No Drugs: None Hx Prescription Drug Abuse: No - Advance Directive Resuscitation Status: Full Code Family History Family History: DM, Hyperlipidemia, Hypertension Parental Family History Reviewed: Yes Children Family History Reviewed: Yes Sibling(s) Family History Reviewed.: Yes Medication/Allergy Home Medications: Escitalopram Oxalate [Lexapro] 20 mg PO DAILY 06/08/19 Hydroxyzine HCl [Atarax 50 mg Tablet] 50 mg PO Q6HP PRN 06/08/19 Propranolol HCl [Inderal 40 mg Tablet] 40 mg PO Q12 06/08/19 Fluticasone Propionate [Flonase Nasal Blanco 50 Mcg/Blanco 16 gm] 1 spray NAREB DAILY 09/24/19 Hydroxyzine HCl [Atarax 50 mg Tablet] 50 mg PO BID 09/24/19 Lorazepam 0.5 mg PO Q6HP PRN 09/24/19 Losartan/Hydrochlorothiazide [Losartan-Hctz 100-25 mg Tab] 1 each PO DAILY 09/24/19 Ondansetron HCl [Zofran 8 mg Tablet] 8 mg PO Q8HP PRN 09/24/19 Oxycodone HCl/Acetaminophen [Oxycodone-Acetaminophen 10-325] 1 each PO 5XDP PRN 09/24/19 Potassium Chloride 20 meq PO DAILY 09/24/19 Promethazine HCl [Phenergan 25 mg Tablet] 25 mg PO Q6HP PRN 09/24/19 Allergies/Adverse Reactions: bacitracin [From Neosporin] Allergy (Severe, Verified 06/06/19 10:59) Blisters neomycin sulfate [From Neosporin] Allergy (Severe, Verified 06/06/19 10:59) Blisters nitrous oxide [Nitrous Oxide] Allergy (Severe, Verified 06/06/19 10:59) "Fight or Flight" reaction polymyxin B [From Neosporin] Allergy (Severe, Verified 06/06/19 10:59) Blisters Sulfa (Sulfonamide Antibiotics) Allergy (Severe, Verified 06/06/19 10:59) Jenkins on the inside tizanidine HCl [From Zanaflex] Allergy (Severe, Verified 06/06/19 10:59) Blood in stool Review of Systems Constitutional: ABSENT: chills, fever(s), headache(s), weight gain, weight loss Eyes: ABSENT: visual disturbances Ears: ABSENT: hearing changes Cardiovascular: ABSENT: chest pain, dyspnea on exertion, edema, orthropnea, palpitations Respiratory: ABSENT: cough, hemoptysis Gastrointestinal: ABSENT: abdominal pain, constipation, diarrhea, hematemesis, hematochezia, nausea, vomiting Genitourinary: ABSENT: dysuria, hematuria Musculoskeletal: ABSENT: joint swelling Integumentary: ABSENT: rash, wounds Neurological: ABSENT: abnormal gait, abnormal speech, confusion, dizziness, focal weakness, syncope Psychiatric: ABSENT: anxiety, depression, homidical ideation, suicidal ideation Endocrine: ABSENT: cold intolerance, heat intolerance, polydipsia, polyuria Hematologic/Lymphatic: ABSENT: easy bleeding, easy bruising Physical Exam Vital Signs: Temp Pulse Resp BP Pulse Ox 98.2 F 85 18 144/81 H 100 09/26/19 08:00 09/26/19 08:00 09/26/19 08:00 09/26/19 08:00 09/26/19 08:00 Intake & Output 09/25/19 09/26/19 09/27/19 06:59 06:59 06:59 Intake Total 4186 2950 Output Total 500 Balance 4186 2450 Weight 102.7 kg 102.1 kg General appearance: PRESENT: no acute distress, well-developed, well-nourished Head exam: PRESENT: atraumatic, normocephalic Eye exam: PRESENT: conjunctiva pink, EOMI, PERRLA. ABSENT: scleral icterus Ear exam: PRESENT: normal external ear exam Mouth exam: PRESENT: moist, tongue midline Neck exam: ABSENT: carotid bruit, JVD, lymphadenopathy, thyromegaly Respiratory exam: PRESENT: clear to auscultation sweta. ABSENT: rales, rhonchi, wheezes Cardiovascular exam: PRESENT: RRR. ABSENT: diastolic murmur, rubs, systolic murmur Pulses: PRESENT: normal dorsalis pedis pul Vascular exam: PRESENT: normal capillary refill GI/Abdominal exam: PRESENT: normal bowel sounds, soft. ABSENT: distended, guarding, mass, organolmegaly, rebound, tenderness Rectal exam: PRESENT: deferred Extremities exam: PRESENT: full ROM. ABSENT: calf tenderness, clubbing, pedal edema Neurological exam: PRESENT: alert, awake, oriented to person, oriented to place, oriented to time, oriented to situation, CN II-XII grossly intact. ABSENT: motor sensory deficit Psychiatric exam: PRESENT: appropriate affect, normal mood. ABSENT: homicidal ideation, suicidal ideation Skin exam: PRESENT: dry, intact, warm. ABSENT: cyanosis, rash Results Laboratory Results: 09/26/19 04:28 09/26/19 04:28 09/26/19 09/26/19 04:28 04:28 WBC 3.5 L RBC 3.24 L Hgb 9.9 L Hct 27.7 L MCV 85 MCH 30.6 MCHC 35.8 RDW 13.9 Plt Count 165 Seg Neutrophils % 59.5 Sodium 134.3 L Potassium 3.5 L Chloride 97 L Carbon Dioxide 28 Anion Gap 9 BUN 11 Creatinine 1.11 Est GFR ( Amer) > 60 Glucose 96 Calcium 9.1 Phosphorus 3.8 Magnesium 1.6 Total Bilirubin 0.3 AST 9 L Alkaline Phosphatase 90 Total Protein 5.8 L Albumin 3.2 L 09/23/19 12 17:20 17:20 Troponin I < 0.012 NT-Pro-B Natriuret Pep 159 H Impressions: Chest X-Ray 09/23/19 17:21 IMPRESSION: NO ACUTE FINDINGS. Assessment & Plan - Diagnosis (1) Cervical cancer Qualifiers: Malignant neoplasm of cervix location: overlapping locations Qualified Code(s): C53.8 - Malignant neoplasm of overlapping sites of cervix uteri Is this a current diagnosis for this admission?: Yes Plan: Locally advanced cervical cancer status post concurrent chemoradiation completion, had 1 dose of brachii therapy and patient states to me that she is not going to take anymore, she apparently has discussed this with [facility] in [place]. She will continue follow-up in our clinic. (2) Prerenal acute renal failure Is this a current diagnosis for this admission?: Yes Plan: imProving, secondary to diarrhea and fluid depletion, to new hydration for another 24 hours, continue antiemetics for another 24 hours (3) Diarrhea due to drug Is this a current diagnosis for this admission?: Yes Plan: Severe, continue hydration for another 24 hours (4) Nausea & vomiting Qualifiers: Vomiting type: unspecified Vomiting Intractability: intractable Qualified Code(s): R11.2 - Nausea with vomiting, unspecified Is this a current diagnosis for this admission?: Yes Plan: Still pretty severe, still will require another 24 hours of hydration - Time Time Spent: Greater than 70 Minutes - Inpatient Certification Based on my medical assessment, after consideration of the patient's comorbidities, presenting symptoms, or acuity I expect that the services needed warrant INPATIENT care.: Yes I certify that my determination is in accordance with my understanding of Medicare's requirements for reasonable and necessary INPATIENT services [42 CFR 412.3e].: Yes Medical Necessity: Risk of Complication if Not Cared For in Hospital
[2019-09-26] MEDS: LOSARTAN POTASSIUM 50 MG TABLET PO SCH (09:20)
[2019-09-26] MEDS: OXYCODONE-ACETAMINOPHEN 5-325 MG TABLET PO PRN ×2 (09:20→15:20)
[2019-09-26] MEDS: ESCITALOPRAM OXALATE 10 MG TABLET PO SCH (09:21)
[2019-09-26] MEDS: PROPRANOLOL HCL 40 MG TABLET PO SCH ×2 (09:21→21:23)
[2019-09-26] MEDS: FLUTICASONE NASAL SPRAY 50 MCG/SPRY 120 SPRAY/16 GM NAREB SCH (09:22)
[2019-09-26] MEDS: NICOTINE 14 MG/24 HR PATCH.TD24 TD SCH (09:23)
[2019-09-26] MEDS: ENOXAPARIN SODIUM INJ 40 MG/0.4 ML DISP.SYRIN SUBCUT SCH (09:27)
[2019-09-26] MEDS: CALCIUM CARBONATE 500 MG TABLET PO SCH ×4 (09:33→21:22)
[2019-09-26] MEDS: METOCLOPRAMIDE HCL INJ/PF 10 MG/2 ML SDV IV PRN ×2 (12:15→21:23)
--- NOTE | 2019-09-26 15:22 | PDOC PROGRESS REPORT ---
Subjective Progress Note for:: 09/26/19 Subjective:: Woke patient from a nap. She states that finally she was feeling a little better and able to sleep. Nausea still persists but for last several hours she has been okay. She is not complaining of any pain or diarrhea. Reason For Visit: SEVERE SYMTOMATIC HYPOCALCEMIA Physical Exam Vital Signs: Temp Pulse Resp BP Pulse Ox 98.5 F 76 18 107/62 98 09/26/19 12:00 09/26/19 12:00 09/26/19 12:00 09/26/19 12:00 09/26/19 12:00 Intake & Output 09/25/19 09/26/19 09/27/19 06:59 06:59 06:59 Intake Total 4186 2950 596 Output Total 500 Balance 4186 2450 596 Weight 102.7 kg 102.1 kg General appearance: PRESENT: no acute distress, cooperative, well-developed Respiratory exam: PRESENT: clear to auscultation sweta, symmetrical, unlabored. ABSENT: accessory muscle use, chest wall tenderness, rales, rhonchi, tachypnea, wheezes Cardiovascular exam: PRESENT: RRR, +S1, +S2 GI/Abdominal exam: PRESENT: normal bowel sounds, soft. ABSENT: diminished bowel sounds, guarding, tenderness Rectal exam: PRESENT: deferred Musculoskeletal exam: PRESENT: ambulatory, normal inspection. ABSENT: deformity Neurological exam: PRESENT: alert, awake, oriented to person, oriented to place, oriented to time, oriented to situation, CN II-XII grossly intact Psychiatric exam: PRESENT: appropriate affect. ABSENT: agitated, anxious Focused psych exam: ABSENT: delusional, restlessness Skin exam: PRESENT: other - Multiple tattoos Results Laboratory Results: 09/26/19 04:28 09/26/19 04:28 09/26/19 09/26/19 04:28 04:28 WBC 3.5 L RBC 3.24 L Hgb 9.9 L Hct 27.7 L MCV 85 MCH 30.6 MCHC 35.8 RDW 13.9 Plt Count 165 Seg Neutrophils % 59.5 Sodium 134.3 L Potassium 3.5 L Chloride 97 L Carbon Dioxide 28 Anion Gap 9 BUN 11 Creatinine 1.11 Est GFR ( Amer) > 60 Glucose 96 Calcium 9.1 Phosphorus 3.8 Magnesium 1.6 Total Bilirubin 0.3 AST 9 L Alkaline Phosphatase 90 Total Protein 5.8 L Albumin 3.2 L 09/23/19 09/23/19 17:20 17:20 Troponin I < 0.012 NT-Pro-B Natriuret Pep 159 H Impressions: Chest X-Ray 09/23/19 17:21 IMPRESSION: NO ACUTE FINDINGS. Assessment and Plan - Diagnosis (1) Cisplatin adverse reaction Qualifiers: Encounter type: subsequent encounter Qualified Code(s): T45.1X5D - Adverse effect of antineoplastic and immunosuppressive drugs, subsequent encounter Is this a current diagnosis for this admission?: Yes Plan: Characterized by severe nausea, vomiting, diarrhea, hypocalcemia and polyneuro klaus. Patient states she has received her last dose of cisplatin last Tuesday. 09/26/2019-patient still having vomiting but diarrhea seems to be improved. We will continue to supplement by mouth if tolerated by IV if not. We will start a trial of metoclopramide. 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 I will discontinue slow calcium gluconate infusion at this point. I will give 1 more gram of calcium gluconate bolus and have increased calcium carbonate to 1 g 4 times daily. We will continue to monitor CMP and ultimately will need to ensure her magnesium levels are adequate. 09/26/2019-appears to be holding steady with calcium carbonate. Continue to monitor. (3) Hypomagnesemia Is this a current diagnosis for this admission?: Yes Plan: Secondary to severe nausea vomiting Was 0.5 on admission but has now resolved to normal limits. 09/25/2019 Magnesium is low once again today secondary to several bouts of vomiting last night. I replete aggressively with 4 g of magnesium sulfate. Ultimately, we will need to resolve her nausea vomiting and fairly limited by have mild QT prolongation I will use Phenergan but increase dose to 25 mg every 6 hours as needed and At dario 1 mg every 6 hours as needed for nausea vomiting. Have instructed patient to ask for these medications before meals to allow her to hold down her meals. 09/26/2019-magnesium normal today. We will continue to monitor. QT interval slowly improving. (4) Muscle spasm Is this a current diagnosis for this admission?: Yes Plan: Tetany has resolved. Flexeril as needed. 09/26/2019-as above (5) Cervical cancer Qualifiers: Malignant neoplasm of cervix location: overlapping locations Qualified Code(s): C53.8 - Malignant neoplasm of overlapping sites of cervix uteri Is this a current diagnosis for this admission?: Yes Plan: Recently diagnosed I have consulted Dr. Yee to help with management of patient's chemo induced symptoms. 09/26/2019-appreciate Dr. Yee's continued participation. Patient reports that cisplatin is on hold currently. (6) Hypokalemia Is this a current diagnosis for this admission?: Yes Plan: Resolved following aggressive repletion's 09/26/2019-borderline today. With nausea and vomiting will still use intermittent potassium chloride riders. When nausea resolves will switch to oral occasions. (7) Tobacco abuse Is this a current diagnosis for this admission?: Yes Plan: Counseled on cessation Placed on nicotine patch 09/26/2019-continue nicotine patch (8) Prerenal acute renal failure Is this a current diagnosis for this admission?: Yes Plan: 09/26/2019-improved with fluids (9) Diarrhea due to drug Is this a current diagnosis for this admission?: Yes Plan: May also be due to radiation. Check C. difficile to rule out infectious cause Start Imodium on C. difficile results as negative. 09/25/2019 C. difficile test was negative. Started on Imodium. 09/26/2019-diarrhea greatly improved. Imodium as needed. (10) Fibromyalgia Is this a current diagnosis for this admission?: Yes Plan: Continue with escitalopram and Percocet 09/26/2019-as above - Time Time Spent with patient: 15-24 minutes Smoking Cessation Education: 3 to 10 minutes Medications reviewed and adjusted accordingly: Yes Anticipated discharge: Home Within: within 48 hours
[2019-09-26] MEDS ORDERED: POTASSI CL 20 MEQ/50 ML RIDER 20 MEQ/50 ML RTUPB IV ONE (16:00)
[2019-09-27] MEDS: NORMAL SALINE 1000 ML 1,000 ML IV PRN (06:09)
[2019-09-27 08:05] VITALS: BP 138/59
[2019-09-27] MEDS: METOCLOPRAMIDE HCL INJ/PF 10 MG/2 ML SDV IV PRN (08:23)
[2019-09-27] MEDS: LORAZEPAM 0.5 MG TABLET PO PRN (08:24)
[2019-09-27] MEDS: ENOXAPARIN SODIUM INJ 40 MG/0.4 ML DISP.SYRIN SUBCUT SCH (09:25)
[2019-09-27] MEDS: ESCITALOPRAM OXALATE 10 MG TABLET PO SCH (09:27)
[2019-09-27] MEDS: CALCIUM CARBONATE 500 MG TABLET PO SCH (09:27)
[2019-09-27] MEDS: LOSARTAN POTASSIUM 50 MG TABLET PO SCH (09:28)
--- NOTE | 2019-09-27 09:28 | PDOC PROGRESS REPORT ---
Subjective Progress Note for:: 09/27/19 Subjective:: Patient improving, still had nausea and vomiting yesterday morning, did better with the addition of Reglan Reason For Visit: SEVERE SYMTOMATIC HYPOCALCEMIA Physical Exam Vital Signs: Temp Pulse Resp BP Pulse Ox 98.5 F 92 17 138/59 H 100 09/27/19 08:00 09/27/19 08:00 09/27/19 08:00 09/27/19 08:00 09/27/19 08:00 Intake & Output 09/26/19 09/27/19 09/28/19 06:59 06:59 06:59 Intake Total 2950 2648 Output Total 500 Balance 2450 2648 Weight 102.1 kg 101.8 kg General appearance: PRESENT: no acute distress, well-developed, well-nourished Head exam: PRESENT: atraumatic, normocephalic Eye exam: PRESENT: conjunctiva pink, EOMI, PERRLA. ABSENT: scleral icterus Ear exam: PRESENT: normal external ear exam Mouth exam: PRESENT: moist, tongue midline Neck exam: ABSENT: carotid bruit, JVD, lymphadenopathy, thyromegaly Respiratory exam: PRESENT: clear to auscultation sweta. ABSENT: rales, rhonchi, wheezes Cardiovascular exam: PRESENT: RRR. ABSENT: diastolic murmur, rubs, systolic murmur Pulses: PRESENT: normal dorsalis pedis pul Vascular exam: PRESENT: normal capillary refill GI/Abdominal exam: PRESENT: normal bowel sounds, soft. ABSENT: distended, gu arding, mass, organolmegaly, rebound, tenderness Rectal exam: PRESENT: deferred Extremities exam: PRESENT: full ROM. ABSENT: calf tenderness, clubbing, pedal edema Neurological exam: PRESENT: alert, awake, oriented to person, oriented to place, oriented to time, oriented to situation, CN II-XII grossly intact. ABSENT: mot or sensory deficit Psychiatric exam: PRESENT: appropriate affect, normal mood. ABSENT: homicidal ideation, suicidal ideation Skin exam: PRESENT: dry, intact, warm. ABSENT: cyanosis, rash Results Laboratory Results: 09/26/19 04:28 09/26/19 04:28 09/23/19 09/23/19 17:20 17:20 Troponin I < 0.012 NT-Pro-B Natriuret Pep 159 H Impressions: Chest X-Ray 09/23/19 17:21 IMPRESSION: NO ACUTE FINDINGS. Assessment & Plan - Diagnosis (1) Cervical cancer Qualifiers: Malignant neoplasm of cervix location: overlapping locations Qualified Code(s): C53.8 - Malignant neoplasm of overlapping sites of cervix uteri Is this a current diagnosis for this admission?: Yes Plan: Status post completion of therapy, she does not want undergo any further therapy. We will see her as an outpatient. (2) Prerenal acute renal failure Is this a current diagnosis for this admission?: Yes Plan: Improved (3) Diarrhea due to drug Is this a current diagnosis for this admission?: Yes Plan: Improved (4) Nausea & vomiting Qualifiers: Vomiting type: unspecified Vomiting Intractability: intractable Qualified Code(s): R11.2 - Nausea with vomiting, unspecified Is this a current diagnosis for this admission?: Yes Plan: We will see how patient does with breakfast and lunch today, if she can keep it down without severe emesis and she could probably discharge this afternoon with oral antiemetics, discussed with hospitalist team. - Time Time Spent with patient: 35 or more minutes
[2019-09-27] MEDS: FLUTICASONE NASAL SPRAY 50 MCG/SPRY 120 SPRAY/16 GM NAREB SCH (09:29)
[2019-09-27] MEDS: PROPRANOLOL HCL 40 MG TABLET PO SCH (09:30)
[2019-09-27] MEDS: NICOTINE 14 MG/24 HR PATCH.TD24 TD SCH (09:31)
[2019-09-27] MEDS: OXYCODONE-ACETAMINOPHEN 5-325 MG TABLET PO PRN (09:37)
--- NOTE | 2019-09-27 12:17 | PDOC DISCHARGE SUMMARY ---
Impression - Admit/DC Date/PCP Admission Date/Primary Care Provider: 09/23/19 18:41 EDER TRUONG Discharge Date: 09/27/19 - Discharge Diagnosis (1) Cisplatin adverse reaction Is this a current diagnosis for this admission?: Yes (2) Hypocalcemia Is this a current diagnosis for this admission?: Yes (3) Hypomagnesemia Is this a current diagnosis for this admission?: Yes (4) Muscle spasm Is this a current diagnosis for this admission?: Yes (5) Cervical cancer Is this a current diagnosis for this admission?: Yes (6) Hypokalemia Is this a current diagnosis for this admission?: Yes (7) Tobacco abuse Is this a current diagnosis for this admission?: Yes (8) Prerenal acute renal failure Is this a current diagnosis for this admission?: Yes (9) Diarrhea due to drug Is this a current diagnosis for this admission?: Yes (10) Fibromyalgia Is this a current diagnosis for this admission?: Yes - Additional Information Resuscitation Status: Full Code Discharge Diet: As Tolerated Referrals: HO DE OLIVEIRA MD [[facility]] - 10/24/19 2:00 pm Prescriptions: Lorazepam 0.5 mg PO Q6HP PRN 7 Days #28 tab PRN Reason: ANXIETY/NauseA Metoclopramide HCl 5 mg PO ACHS 7 Days #28 tablet Oxycodone HCl/Acetaminophen [Oxycodone-Acetaminophen 10-325] 1 each PO 5XDP PRN 7 Days #28 tab PRN Reason: For Pain Home Medications: Escitalopram Oxalate [Lexapro] 20 mg PO DAILY 06/08/19 Hydroxyzine HCl [Atarax 50 mg Tablet] 50 mg PO Q6HP PRN 06/08/19 Propranolol HCl [Inderal 40 mg Tablet] 40 mg PO Q12 06/08/19 Fluticasone Propionate [Flonase Nasal [place] 50 Mcg/[place] 16 gm] 1 spray NAREB DAILY 09/24/19 Hydroxyzine HCl [Atarax 50 mg Tablet] 50 mg PO BID 09/24/19 Losartan/Hydrochlorothiazide [Losartan-Hctz 100-25 mg Tab] 1 each PO DAILY 09/24/19 Ondansetron HCl [Zofran 8 mg Tablet] 8 mg PO Q8HP PRN 09/24/19 Potassium Chloride 20 meq PO DAILY 09/24/19 Promethazine HCl [Phenergan 25 mg Tablet] 25 mg PO Q6HP PRN 09/24/19 Calcium Carbonate [Os-Janusz 500 mg Tablet (Oyster-Shell)] 1,000 mg PO QID tablet 09/27/19 Escitalopram Oxalate [Lexapro 10 mg Tablet] 20 mg PO DAILY tablet 09/27/19 Fluticasone Propionate [Flonase Nasal [place] 50 Mcg/[place] 16 gm] 1 spray NAREB DAILY spray.pump 09/27/19 Lorazepam 0.5 mg PO Q6HP PRN 7 Days #28 tab 09/27/19 Metoclopramide HCl 5 mg PO ACHS 7 Days #28 tablet 09/27/19 Nicotine [Nicoderm 14 mg/24 Hr Transdermal Patch] 1 each TD DAILY patch.td24 09/27/19 Oxycodone HCl/Acetaminophen [Oxycodone-Acetaminophen 10-325] 1 each PO 5XDP PRN 7 Days #28 tab 09/27/19 Oxycodone HCl/Acetaminophen [Percocet 5-325 mg Tablet] 1 tab PO Q6HP PRN tablet 09/27/19 Propranolol HCl [Inderal 40 mg Tablet] 40 mg PO Q12 tablet 09/27/19 History of Present Illiness History of Present Illness: SALLY TURK is a 49 year old female with recently diagnosed cervical/vaginal cancer. Currently undergoing cisplatin therapy. She reports that she developed significant muscle spasms, paresthesias in her face and hands as well as difficulty breathing. She has been having nausea, vomiting and diarrhea felt to be due to the cisplatin. On evaluation she had severe electrolyte derangement. She was referred to the hospital service for admission. Hospital Course Hospital Course: It took several days to resolve her symptoms. She had marked electrolyte abnormalities and acute kidney injury due to the nausea, vomiting and diarrhea. The diarrhea resolved first. She is still having significant nausea and vomiting. Daily replacement of electrolytes was provided. The paresthesias and muscle spasms resolved. She does have a history of fibromyalgia and in fact returned to her baseline pain. A trial of metoclopramide was instituted and in fact she had significant relief. Today she is sitting in bed eating bagels without any recurrent nausea or vomiting. Electrolytes are significantly improved. Hydration has reversed the mild acute kidney injury caused by the nausea and vomiting. I did discuss the discharge with Dr. Yee and the patient is amenable now that her nausea and vomiting has improved. She will follow-up with Dr. Yee and at the pain management clinic after discharge. She did require additional pain medications due to the increased pain with hospitalization. Physical Exam Vital Signs: Temp Pulse Resp BP Pulse Ox 98.5 F 92 17 138/59 H 100 09/27/19 08:00 09/27/19 08:00 09/27/19 08:00 09/27/19 08:00 09/27/19 08:00 Intake & Output 09/26/19 09/27/19 09/28/19 06:59 06:59 06:59 Intake Total 2950 2648 Output Total 500 Balance 2450 2648 Weight 102.1 kg 101.8 kg General appearance: PRESENT: no acute distress, cooperative, well-developed, well-nourished Head exam: PRESENT: atraumatic, normocephalic Mouth exam: PRESENT: moist, tongue midline Respiratory exam: PRESENT: clear to auscultation sweta, symmetrical, unlabored. ABSENT: accessory muscle use, prolonged expiratory phas, rales, rhonchi, tachypnea, wheezes Cardiovascular exam: PRESENT: RRR, +S1, +S2 GI/Abdominal exam: PRESENT: normal bowel sounds, soft. ABSENT: distended, guarding, tenderness Rectal exam: PRESENT: deferred Neurological exam: PRESENT: alert, awake, oriented to person, oriented to place, oriented to time, oriented to situation, CN II-XII grossly intact Psychiatric exam: PRESENT: appropriate affect, normal mood. ABSENT: agitated, anxious Focused psych exam: ABSENT: delusional, restlessness Skin exam: PRESENT: other - Multiple tattoos Results Laboratory Results: WBC 3.5 10^3/uL (4.0-10.5) L 09/26/19 04:28 RBC 3.24 10^6/uL (3.72-5.28) L 09/26/19 04:28 Hgb 9.9 g/dL (12.0-15.5) L 09/26/19 04:28 Hct 27.7 % (36.0-47.0) L 09/26/19 04:28 MCV 85 fl (80-97) 09/26/19 04:28 MCH 30.6 pg (27.0-33.4) 09/26/19 04:28 MCHC 35.8 g/dL (32.0-36.0) 09/26/19 04:28 RDW 13.9 % (11.5-14.0) 09/26/19 04:28 Plt Count 165 10^3/uL (150-450) 09/26/19 04:28 Lymph % (Auto) 23.0 % (13-45) 09/26/19 04:28 Banks % (Auto) 16.6 % (3-13) H 09/26/19 04:28 Eos % (Auto) 0.6 % (0-6) 09/26/19 04:28 Baso % (Auto) 0.3 % (0-2) 09/26/19 04:28 Absolute Neuts (auto) 2.1 10^3/uL (1.7-8.2) 09/26/19 04:28 Absolute Lymphs (auto) 0.8 10^3/uL (0.5-4.7) 09/26/19 04:28 Absolute Monos (auto) 0.6 10^3/uL (0.1-1.4) 09/26/19 04:28 Absolute Eos (auto) 0.0 10^3/uL (0.0-0.6) 09/26/19 04:28 Absolute Basos (auto) 0.0 10^3/uL (0.0-0.2) 09/26/19 04:28 Seg Neutrophils % 59.5 % (42-78) 09/26/19 04:28 VBG pH 7.42 (7.30-7.42) 09/23/19 18:08 VBG pCO2 50.8 mmHg (35-63) 09/23/19 18:08 VBG HCO3 32.5 mmol/L (20-32) H 09/23/19 18:08 VBG Base Excess 6.4 mmol/L 09/23/19 18:08 Sodium 134.3 mmol/L (137-145) L 09/26/19 04:28 Potassium 3.5 mmol/L (3.6-5.0) L 09/26/19 04:28 Chloride 97 mmol/L (98-107) L 09/26/19 04:28 Carbon Dioxide 28 mmol/L (22-30) 09/26/19 04:28 Anion Gap 9 (5-19) 09/26/19 04:28 BUN 11 mg/dL (7-20) 09/26/19 04:28 Creatinine 1.11 mg/dL (0.52-1.25) 09/26/19 04:28 Est GFR ( Amer) > 60 (>60) 09/26/19 04:28 Est GFR (MDRD) Non-Af 53 (>60) L 09/26/19 04:28 Glucose 96 mg/dL (75-110) 09/26/19 04:28 Calcium 9.1 mg/dL (8.4-10.2) 09/26/19 04:28 Phosphorus 3.8 mg/dL (2.5-4.5) 09/26/19 04:28 Magnesium 1.6 mg/dL (1.6-2.3) 09/26/19 04:28 Total Bilirubin 0.3 mg/dL (0.2-1.3) 09/26/19 04:28 Direct Bilirubin 0.2 mg/dL (0.0-0.4) 09/26/19 04:28 Neonat Total Bilirubin Not Reportable 09/26/19 04:28 Neonat Direct Bilirubin Not Reportable 09/26/19 04:28 Neonat Indirect Bili Not Reportable 09/26/19 04:28 AST 9 U/L (14-36) L 09/26/19 04:28 ALT 15 U/L (<35) 09/26/19 04:28 Alkaline Phosphatase 90 U/L (38-126) 09/26/19 04:28 Troponin I < 0.012 ng/mL 09/23/19 17:20 NT-Pro-B Natriuret Pep 159 pg/mL (<125) H 09/23/19 17:20 Total Protein 5.8 g/dL (6.3-8.2) L 09/26/19 04:28 Albumin 3.2 g/dL (3.5-5.0) L 09/26/19 04:28 Vitamin D 25-Hydroxy 21.1 ng/mL (14.7-68.3) 09/23/19 22:40 Vit D 1,25-Dihydroxy 17.1 pg/mL (19.9-79.3) L 09/23/19 22:40 PTH Intact 177.9 pg/mL (10.0-65.0) H 09/23/19 22:40 Urine Color YELLOW 09/23/19 17:56 Urine Appearance CLEAR 09/23/19 17:56 Urine pH 8.0 (5.0-9.0) 09/23/19 17:56 Ur Specific [place] 1.011 09/23/19 17:56 Urine Protein NEGATIVE mg/dL (NEGATIVE) 09/23/19 17:56 Urine Glucose (UA) NEGATIVE mg/dL (NEGATIVE) 09/23/19 17:56 Urine Ketones NEGATIVE mg/dL (NEGATIVE) 09/23/19 17:56 Urine Blood NEGATIVE (NEGATIVE) 09/23/19 17:56 Urine Nitrite NEGATIVE (NEGATIVE) 09/23/19 17:56 Urine Bilirubin NEGATIVE (NEGATIVE) 09/23/19 17:56 Urine Urobilinogen 2.0 mg/dL (<2.0) H 09/23/19 17:56 Ur Leukocyte Esterase SMALL (NEGATIVE) H 09/23/19 17:56 Urine WBC (Auto) 12 /HPF 09/23/19 17:56 Urine RBC (Auto) 1 /HPF 09/23/19 17:56 U Hyaline Cast (Auto) 1 /LPF 09/23/19 17:56 Squamous Epi Cells Auto 4 /HPF 09/23/19 17:56 Urine Mucus (Auto) RARE /LPF 09/23/19 17:56 Urine Ascorbic Acid NEGATIVE (NEGATIVE) 09/23/19 17:56 Stl C. Difficile GDH Ag NEGATIVE (NEGATIVE) 09/24/19 12:08 Stl C.difficile Tox A&B NEGATIVE (NEGATIVE) 09/24/19 12:08 09/23/19 09/23/19 17:20 17:20 Troponin I < 0.012 NT-Pro-B Natriuret Pep 159 H Impressions: Chest X-Ray 09/23/19 17:21 IMPRESSION: NO ACUTE FINDINGS. Plan Health Concerns: Tolerability of ongoing treatment for malignancy Continued monitoring of electrolyte abnormalities specifically when she will be able to discontinue some of her supplements once she returns to a normal diet. Plan of Treatment: As above. Follow-up with Dr. Yee for malignancy and primary care provider for other measures. Prescriptions for metoclopramide, lorazepam and narcotic analgesia provided. Goals: Successful treatment of malignancy Time Spent: Greater than 30 Minutes Stroke Is this a Stroke Patient?: No Acute Heart Failure - Is this a Heart Failure Patient?: No
== END 2019-09-27 13:18 | disposition home or self-care (01) | DRG 641 ==
LOC: ER 17:10 → EH 18:41 → 4W 23:01
PROVIDERS: ADMIT Internal Medicine; ATTEND Internal Medicine
DX: E83.51 Hypocalcemia (principal); N17.9 Acute kidney failure, unspecified; K52.1 Toxic gastroenteritis and colitis; T45.1X5A Adverse effect of antineoplastic and immunosuppressive drugs, initial encounter; E83.42 Hypomagnesemia; E87.6 Hypokalemia; M62.838 Other muscle spasm; M79.7 Fibromyalgia; I25.10 Atherosclerotic heart disease of native coronary artery without angina pectoris; I10 Essential (primary) hypertension; M19.90 Unspecified osteoarthritis, unspecified site; F32.9 Major depressive disorder, single episode, unspecified; F41.1 Generalized anxiety disorder; C53.8 Malignant neoplasm of overlapping sites of cervix uteri; F12.90 Cannabis use, unspecified, uncomplicated; R11.2 Nausea with vomiting, unspecified; R06.02 Shortness of breath; Z72.0 Tobacco use; Z79.899 Other long term (current) drug therapy; Z88.4 Allergy status to anesthetic agent; Z88.3 Allergy status to other anti-infective agents; Z88.2 Allergy status to sulfonamides; Z88.8 Allergy status to other drugs, medicaments and biological substances; Z82.49 Family history of ischemic heart disease and other diseases of the circulatory system
CPT/HCPCS: 36415; 71045; 80053; 81001; 82306; 82652; 82803; 83735; 83880; 83970; 84100; 84484; 85025; 87070; 87324; 87449; 93005; 93010; 99285; J0610; J1650; J2550; J2765; J3360; J3475; J3480; J3490; J7030; J7060

== ENCOUNTER → 2019-11-02 | Outpatient (CLI) | payer MEDICARE, MEDICAID ==
--- NOTE | 2019-11-02 11:16 | RADIOLOGY REPORT (SQ) ---
EXAM DESCRIPTION: CT ABD/PELVIS WITH IV ORAL COMPLETED DATE/TIME: 11/02/2019 9:35 am REASON FOR STUDY: C53.8 MALIGNANT NEOPLASM OF OVERLAPPING SITES OF CERVIX UTERI, R11.2 NAUSEA C53.8 MALIGNANT NEOPLASM OF OVERLAPPING SITES OF CERVIX UTERI R11.2 NAUSEA WITH VOMITING, UNSPECIFIED R10 .9 UNSPECIFIED ABDOMINAL PAIN COMPARISON: MRI of the pelvis 08/10/2019 TECHNIQUE: CT scan of the abdomen and pelvis performed using helical scanning technique with dynamic intravenous contrast injection. Oral contrast. Images reviewed with lung, soft tissue, and bone win dows. Reconstructed coronal and sagittal MPR images reviewed. Delayed images for evaluation of the ur inary system also acquired. All images stored on PACS. All CT scanners at this facility use dose modulation, iterative reconstruction, and/or weight based d osing when appropriate to reduce radiation dose to as low as reasonably achievable (ALARA). [facility]: Dose Right [facility]: CareDose [facility]: Dose Right [facility]: Teradose 4D [facility]: 404 Found! CONTRAST TYPE AND DOSE: contrast/concentration: Isovue 350.00 mg/ml; Total Contrast Delivered: 100.0 ml; Total Saline Delivered: 72.0 ml RENAL FUNCTION: BUN 10 creatinine 1.4 RADIATION DOSE: CT Rad equipment meets quality standard of care and radiation dose reduction techniq ues were employed. CTDIvol: 12.6 - 12.7 mGy. DLP: 1272 mGy-cm.. LIMITATIONS: None. FINDINGS: LOWER CHEST: No significant findings. No nodules or infiltrates. LIVER: Small cyst in the right lobe. No masses. SPLEEN: Normal size. No focal lesions. PANCREAS: No masses. No significant calcifications. No adjacent inflammation or peripancreatic fluid collections. Pancreatic duct not dilated. GALLBLADDER: No identified stones by CT criteria. No inflammatory changes to suggest cholecystitis. ADRENAL GLANDS: No significant masses or asymmetry. RIGHT KIDNEY AND URETER: No solid masses. No significant calcifications. No hydronephrosis or hyd roureter. LEFT KIDNEY AND URETER: No solid masses. No significant calcifications. No hydronephrosis or hydr oureter. AORTA AND VESSELS: No aneurysm. No dissection. Renal arteries, SMA, celiac without stenosis. RETROPERITONEUM: No retroperitoneal adenopathy, hemorrhage or masses. BOWEL AND PERITONEAL CAVITY: There is mild wall thickening in the descending colon. No obvious bowel mass is seen. APPENDIX: Not identified. PELVIS: There appears to be thickening in the right side of the cervix. See image 71 series 2. No a bnormal pelvic adenopathy is present. The urinary bladder is normal. There is no free fluid. ABDOMINAL WALL: No masses. No hernias. BONES: No significant or acute findings. OTHER: No other significant finding. IMPRESSION: 1. There is no evidence of metastatic disease in the abdomen or pelvis. There is no ad enopathy. 2. There appears to be slight thickening of the right side of the cervix. This is not as well seen as on the prior MRI. 3. There is questionable thickening of the wall of the descending colon versus mere nondistention. Is there history of inflammatory bowel disease? TECHNICAL DOCUMENTATION: JOB ID: [id number] Quality ID # [id number]: Final reports with documentation of one or more dose reduction techniques (e.g., Au tomated exposure control, adjustment of the mA and/or kV according to patient size, use of iterative reconstruction technique) 2010 [employer]- All Rights Reserved Reading location - IP/workstation name: [email or web address]
== END ==
LOC: RAD 08:56
PROVIDERS: ATTEND Physician Assistant Medical
DX: C53.8 Malignant neoplasm of overlapping sites of cervix uteri (principal); R11.2 Nausea with vomiting, unspecified; R10.9 Unspecified abdominal pain
CPT/HCPCS: 74177

== ENCOUNTER → 2020-01-02 | Outpatient (CLI) | payer MEDICARE, MEDICAID ==
[2020-01-02 13:38] LABS: ABSOLUTE EOSINOPHILS # (AUTO) 0.2 10^3/uL (0.0-0.6); ABSOLUTE LYMPHOCYTES (AUTO) 1.2 10^3/uL (0.5-4.7); ABSOLUTE MONOCYTES (AUTO) 0.6 10^3/uL (0.1-1.4); ABSOLUTE NEUT (AUTO) 4.2 10^3/uL (1.7-8.2); BASOPHILS % (AUTO) 0.6 % (0-2); EOSINOPHILS % (AUTO) 2.5 % (0-6); HEMATOCRIT 40.3 % (36.0-47.0); LYMPHOCYTES % (AUTO) 19.5 % (13-45); MEAN CORPUSCULAR HEMOGLOBIN 32.8 pg (27.0-33.4); MEAN CORPUSCULAR HGB CONC 34.8 g/dL (32.0-36.0); MEAN CORPUSCULAR VOLUME 94 fl (80-97); MONOCYTES % (AUTO) 9.2 % (3-13); PLATELET COUNT 256 10^3/uL (150-450); RED BLOOD COUNT 4.28 10^6/uL (3.72-5.28); SEGMENTED NEUTROPHILS % (AUTO) 68.2 % (42-78); TOTAL CELLS COUNTED % (AUTO) 100 %; WHITE BLOOD COUNT 6.2 10^3/uL (4.0-10.5)
[2020-01-02 14:22] LABS: ALBUMIN 4.4 g/dL (3.5-5.0); ALKALINE PHOSPHATASE 107 U/L (38-126); ANION GAP 11 (5-19); ASPARTATE AMINO TRANSFERASE 14 U/L (14-36); BILIRUBIN,DIRECT 0.2 mg/dL (0.0-0.4); BILIRUBIN,TOTAL 0.2 mg/dL (0.2-1.3); BLOOD UREA NITROGEN 13 mg/dL (7-20); CALCIUM 10.2 mg/dL (8.4-10.2); CARBON DIOXIDE 32 mmol/L (22-30); CHLORIDE 97 mmol/L (98-107); GLUCOSE 99 mg/dL (75-110); POTASSIUM 3.4 mmol/L (3.6-5.0); TOTAL PROTEIN 7.7 g/dL (6.3-8.2)
== END ==
LOC: OD 12:47
PROVIDERS: ATTEND Nurse Practitioner Family
DX: E04.1 Nontoxic single thyroid nodule (principal); M62.81 Muscle weakness (generalized); R53.82 Chronic fatigue, unspecified
CPT/HCPCS: 36415; 80053; 84443; 85025

== ENCOUNTER → 2020-01-04 | Outpatient (CLI) | payer MEDICARE, MEDICAID ==
--- NOTE | 2020-01-04 17:02 | RADIOLOGY REPORT (SQ) ---
EXAM DESCRIPTION: U/S THYROID/SFT TISS HD NECK COMPLETED DATE/TIME: 01/04/2020 4:39 pm REASON FOR STUDY: E04.1 NONTOXIC SINGLE THYROID NODULE E04.1 NONTOXIC SINGLE THYROID NODULE COMPARISON: None. TECHNIQUE: Dynamic and static francisco-scale images acquired of the thyroid gland. Selected additional c olor/power Doppler images recorded. All images stored to PACS. LIMITATIONS: None. FINDINGS: RIGHT LOBE: The right lobe of the thyroid gland measures 4.3 x 1.1 x 1.5 cm, normal size. Homogeneous echotexture. No cystic or solid masses. LEFT LOBE: The left lobe of the thyroid gland measures 4.9 x 1.5 x 1.5 cm, normal size. Heterogenou s echotexture. In the mid pole, a 1.7 x 1.4 x 1.5 cm heterogenous nodule with echogenic foci. Blood flow demonstrated. ISTHMUS: The isthmus measures 2.0 mm in AP diameter, normal size. Homogeneous echotexture. No cyst ic or solid masses. OTHER: No other significant finding. IMPRESSION: 1. Heterogenous nodule in the mid pole of the left lobe of the thyroid gland as above. Please see comments below. COMMENT: RECOMMENDATIONS FOR THYROID NODULES 1 CM OR LARGER Solitary nodules: Microcalcifications - FNA if 1 cm or greater. Solid or coarse calcification - FNA if 1.5 cm or greater. Mixed Solid/Cystic or Cystic with Mural Nodule - FNA if 2 cm or greater. None of the above but substantial growth since previous - FNA. Cystic with none of the above features and no significant growth - no FNA. Multiple nodules: Use above criteria for selection of nodules to FNA/biopsy. Biopsy probably not necessary in enlarged gland with multiple nodules of similar appearance. Abnormal lymph nodes - FNA/biopsy. Reference: Management of Thyroid Nodules Detected at [place]: Society of Radiologists in Ultrasound Consensus Stateme nt. Radiology 2005; 237:794-800 TECHNICAL DOCUMENTATION: JOB ID: [id number] [employer]- All Rights Reserved Reading location - IP/workstation name: [email or web address]
== END ==
LOC: RAD 16:01
PROVIDERS: ATTEND Nurse Practitioner Family
DX: E04.1 Nontoxic single thyroid nodule (principal)
CPT/HCPCS: 76536

== ENCOUNTER → 2020-02-06 | Outpatient (CLI) | payer MEDICARE, MEDICAID ==
[2020-02-06 11:53] LABS: ANION GAP 9 (5-19); BLOOD UREA NITROGEN 13 mg/dL (7-20); CALCIUM 10.2 mg/dL (8.4-10.2); CARBON DIOXIDE 32 mmol/L (22-30); CHLORIDE 97 mmol/L (98-107); GLUCOSE 108 mg/dL (75-110); POTASSIUM 3.5 mmol/L (3.6-5.0)
[2020-02-06 12:10] LABS: FREE T4 (FREE THYROXINE) 1.21 ng/dL (0.78-2.19)
[2020-02-06 12:24] LABS: THYROID STIMULATING HORMONE 1.24 uIU/mL (0.47-4.68)
== END ==
LOC: OD 10:25
PROVIDERS: ATTEND Nurse Practitioner Family
DX: E04.1 Nontoxic single thyroid nodule (principal); E04.0 Nontoxic diffuse goiter; R79.89 Other specified abnormal findings of blood chemistry
CPT/HCPCS: 36415; 80048; 84439; 84443; 84480; 86376